=== PATIENT | female | born 1960 | race Caucasian/White ===

== ENCOUNTER 2017-11-10 22:56 | Emergency (ER) | payer SELFPAY ==
[~2017-11-10] VITALS: Ht 160 cm; Wt 63.0 kg
[2017-11-10 23:00] VITALS: BP 171/116
== END 2017-11-11 00:56 | disposition left against medical advice (07) ==
LOC: ER 22:56
DX: R06.02 Shortness of breath (principal); R05 Cough; Z53.21 Procedure and treatment not carried out due to patient leaving prior to being seen by health care provider

== ENCOUNTER 2018-01-25 09:07 | Inpatient (IN) | payer MEDICAID, OTHER ==
[~2018-01-25] VITALS: Ht 160 cm; Wt 59.8 kg
[2018-01-25 09:59] LABS: BASOPHILS % (AUTO) 0.1 % (0-1); EOSINOPHILS # (AUTO) 0.2 X10'3 (0-0.9); EOSINOPHILS % (AUTO) 2.6 % (0-6); HEMATOCRIT 43.9 % (35.0-45.0); HEMOGLOBIN 14.9 g/dl (12.0-16.0); LYMPHOCYTES # (AUTO) 1.3 X10'3 (1.1-4.8); LYMPHOCYTES % (AUTO) 15.1 % (21-51); MEAN CORPUSCULAR HEMOGLOBIN 32.9 PG (27.0-31.0); MEAN CORPUSCULAR VOLUME 96.7 FL (78-98); MEAN PLATELET VOLUME 9.2 FL (7.4-10.4); MONOCYTES # (AUTO) 0.4 X10'3 (0-0.9); MONOCYTES % (AUTO) 4.4 % (2-12); NEUTROPHILS # (AUTO) 6.5 X10'3 (1.8-7.7); NEUTROPHILS % (AUTO) 77.8 % (42-75); PLATELET COUNT 243 X10'3 (140-440); RED BLOOD COUNT 4.54 X10'6 (4.20-5.60); RED CELL DISTRIBUTION WIDTH 15.5 % (11.5-14.5); WHITE BLOOD COUNT 8.4 X10'3 (4.5-11.0)
[2018-01-25 10:14] LABS: ALANINE AMINOTRANSFERASE 49 U/L (12-78); ALBUMIN/GLOBULIN RATIO 0.9 (1.1-1.5); ALKALINE PHOSPHATASE 90 IU/L (46-116); ANION GAP 8 (8-16); ASPARTATE AMINO TRANSFERASE 25 U/L (10-37); BILIRUBIN,TOTAL 0.3 MG/DL (0.1-1.0); BLOOD UREA NITROGEN 18 MG/DL (7-18); BUN/CREATININE RATIO 18.6 (6.6-38.0); CALCIUM 8.8 MG/DL (8.5-10.1); CHLORIDE 107 MMOL/L (99-107); CREATININE 0.97 MG/DL (0.40-0.90); GLUCOSE 109 MG/DL (70-104); POTASSIUM 3.6 MMOL/L (3.5-5.1); SODIUM 145 MMOL/L (135-145); TOTAL PROTEIN 6.4 G/DL (6.4-8.2); eGFR 59 ML/MIN
[2018-01-25] MEDS ORDERED: ipratropium/albuterol 3ml nebule NEB ONE (11:00)
[2018-01-25] MEDS ORDERED: normal saline 1000ML IV soln IVB ONE (11:00)
[2018-01-25] MEDS ORDERED: iohexol 350MG/ML 100ml bottle IV ONE (11:34)
[2018-01-25] MEDS ORDERED: famotidine/PF 10 mg/ml inj IV ONE (11:35)
[2018-01-25] MEDS ORDERED: diphenhydrAMINE 50 mg/ml inj IV ONE (11:35)
[2018-01-25] MEDS ORDERED: methylPREDNISolone sod succ 125mg/2ml vial IV ONE (11:35)
[2018-01-25] MEDS ORDERED: aspirin 81mg tab.chew PO ONE (11:40)
[2018-01-25 11:43] LABS: MAGNESIUM 2.1 MG/DL (1.5-2.4)
[2018-01-25 12:35] LABS: PARTIAL THROMBOPLASTIN TIME 24 SECONDS (22-32)
[2018-01-25] MEDS ORDERED: heparin 10,000 units/1 ML INJ IV ONE ×2 (12:35→14:30)
[2018-01-25] MEDS ORDERED: heparin 10,000 units/1 ML INJ IV PRN ×2 (12:35→14:30)
[2018-01-25] MEDS ORDERED: hydrALAZINE 20mg/ml inj. IV ONE (12:50)
[2018-01-25] MEDS ORDERED: nitroGLYCERIN-Tridil 50MG/D5W 250 ML IV PRN (13:27)
[2018-01-25] MEDS ORDERED: furosemide 10 MG/1 ML 10ml inj IV ONE (13:30)
[2018-01-25] MEDS ORDERED: ondansetron/PF 4mg/2ml inj IV PRN (14:30)
[2018-01-25] MEDS ORDERED: magnesium hydroxide 30ml (MOM) UD suspension PO PRN (14:30)
[2018-01-25] MEDS ORDERED: ipratropium/albuterol 3ml nebule NEB PRN (14:30)
[2018-01-25] MEDS ORDERED: potassium Cl 40MEQ/NS 500ml 500 ML IV PRN ×2 (14:30)
[2018-01-25] MEDS ORDERED: lisinopril 10 MG tablet PO ONE (14:30)
[2018-01-25] MEDS ORDERED: mag hydrox/Alum hydrox/simeth 30ml oral suspension PO PRN (14:30)
[2018-01-25] MEDS ORDERED: magnesium 2GM in 50ml NS 50 ML IV PRN (14:30)
[2018-01-25] MEDS ORDERED: morphine 4 MG/ML inj SYRINge IV PRN (14:30)
[2018-01-25] MEDS ORDERED: magnesium 4gm in 100ml NS 100 ML IV PRN (14:30)
[2018-01-25] MEDS ORDERED: magnesium Cl slow-release 64mg tablet PO PRN (14:30)
[2018-01-25] MEDS ORDERED: potassium Cl 20 mEq SR tablet PO PRN (14:30)
[2018-01-25 15:22] LABS: BASOPHILS % (AUTO) 0 % (0-1); EOSINOPHILS % (AUTO) 0 % (0-6); HEMATOCRIT 46.9 % (35.0-45.0); LYMPHOCYTES # (AUTO) 0.4 X10'3 (1.1-4.8); LYMPHOCYTES % (AUTO) 4.3 % (21-51); MEAN CORPUSCULAR HEMOGLOBIN 32.9 PG (27.0-31.0); MEAN CORPUSCULAR HGB CONC 34.1 % (33.0-36.5); MEAN CORPUSCULAR VOLUME 96.5 FL (78-98); MONOCYTES % (AUTO) 0.3 % (2-12); NEUTROPHILS # (AUTO) 8.4 X10'3 (1.8-7.7); NEUTROPHILS % (AUTO) 95.4 % (42-75); PLATELET COUNT 263 X10'3 (140-440); RED BLOOD COUNT 4.86 X10'6 (4.20-5.60); RED CELL DISTRIBUTION WIDTH 15.3 % (11.5-14.5); WHITE BLOOD COUNT 8.8 X10'3 (4.5-11.0)
[2018-01-25 15:33] LABS: PARTIAL THROMBOPLASTIN TIME 24 SECONDS (22-32)
[2018-01-25] MEDS: morphine 4 MG/ML inj SYRINge IV PRN (17:43)
[2018-01-25 19:00] VITALS: BP 157/84
[2018-01-25] MEDS: carVEDilol 3.125mg tablet PO SCH (20:59)
[2018-01-25] MEDS: furosemide 10 MG/1 ML 10ml inj IV SCH (20:59)
[2018-01-25] MEDS: acetaminophen 325mg tablet PO PRN (21:00)
[2018-01-25 22:00] VITALS: BP 126/73
[2018-01-26 00:29] LABS: BASOPHILS % (AUTO) 0.4 % (0-1); EOSINOPHILS % (AUTO) 0 % (0-6); HEMOGLOBIN 15.5 g/dl (12.0-16.0); LYMPHOCYTES # (AUTO) 0.5 X10'3 (1.1-4.8); LYMPHOCYTES % (AUTO) 5.1 % (21-51); MEAN CORPUSCULAR HEMOGLOBIN 32.9 PG (27.0-31.0); MEAN CORPUSCULAR HGB CONC 34.4 % (33.0-36.5); MEAN CORPUSCULAR VOLUME 95.7 FL (78-98); MEAN PLATELET VOLUME 9.3 FL (7.4-10.4); MONOCYTES # (AUTO) 0.1 X10'3 (0-0.9); MONOCYTES % (AUTO) 0.6 % (2-12); NEUTROPHILS # (AUTO) 8.6 X10'3 (1.8-7.7); NEUTROPHILS % (AUTO) 93.9 % (42-75); PLATELET COUNT 269 X10'3 (140-440); RED CELL DISTRIBUTION WIDTH 15.3 % (11.5-14.5); WHITE BLOOD COUNT 9.2 X10'3 (4.5-11.0)
[2018-01-26 00:45] LABS: ALANINE AMINOTRANSFERASE 49 U/L (12-78); ALBUMIN 3.1 G/DL (3.4-5.0); ALBUMIN/GLOBULIN RATIO 0.8 (1.1-1.5); ALKALINE PHOSPHATASE 96 IU/L (46-116); ANION GAP 10 (8-16); ASPARTATE AMINO TRANSFERASE 25 U/L (10-37); BILIRUBIN,TOTAL 0.4 MG/DL (0.1-1.0); BLOOD UREA NITROGEN 19 MG/DL (7-18); BUN/CREATININE RATIO 15.4 (6.6-38.0); CHLORIDE 102 MMOL/L (99-107); CHOLESTEROL 225 MG/DL (0-200); CREATININE 1.23 MG/DL (0.40-0.90); GLUCOSE 184 MG/DL (70-104); LDL CHOLESTEROL 144 MG/DL (50-100); MAGNESIUM 1.9 MG/DL (1.5-2.4); POTASSIUM 3.3 MMOL/L (3.5-5.1); SODIUM 141 MMOL/L (135-145); TOTAL CARBON DIOXIDE 29.1 MMOL/L (24-32); TRIGLYCERIDES 62 MG/DL (20-135); eGFR 45 ML/MIN
[2018-01-26 02:00] VITALS: BP 118/75
[2018-01-26] MEDS: morphine 4 MG/ML inj SYRINge IV PRN (03:42)
[2018-01-26 07:01] VITALS: BP 154/99
[2018-01-26] MEDS ORDERED: lisinopril 10 MG tablet PO SCH (08:00)
[2018-01-26] MEDS: potassium Cl 20 mEq SR tablet PO PRN ×3 (08:07→17:28)
[2018-01-26] MEDS: carVEDilol 3.125mg tablet PO SCH (08:07)
[2018-01-26] MEDS: atorvastatin 20mg tablet PO SCH (08:07)
[2018-01-26] MEDS: furosemide 10 MG/1 ML 10ml inj IV SCH (08:08)
[2018-01-26] MEDS: K and/or MAG REPLACEMENT MC SCH (08:09)
[2018-01-26] MEDS ORDERED: regadenoson 0.4mg/5ml syringe IV ONE (09:00)
[2018-01-26] MEDS ORDERED: metoprolol tartrate 1mg/ml inj IV PRN (09:00)
[2018-01-26] MEDS ORDERED: aminophylline 250mg/10ml inj. IV PRN (09:00)
[2018-01-26] MEDS ORDERED: nitroGLYCERIN 0.4mg SUBLingual tab SL PRN (09:00)
[2018-01-26] MEDS: potassium Cl 20 mEq SR tablet PO SCH ×2 (10:15→17:28)
[2018-01-26] MEDS: aspirin 81mg tablet.DR PO SCH (10:16)
[2018-01-26 11:00] VITALS: BP 160/94
[2018-01-26 11:13] LABS: CHOL/HDL RATIO 3.8 (0.00-4.99); HDL CHOLESTEROL 60 MG/DL (35-60)
[2018-01-26 11:22] LABS: C-REACTIVE PROTEIN 0.69 MG/DL (0.0-0.5)
[2018-01-26 11:45] LABS: URINE AMPHETAMINE SCREEN NEGATIVE (Neg); URINE BARBITUATE SCREEN NEGATIVE (Neg); URINE BENZODIAZEPINES SCREEN NEGATIVE (Neg); URINE CANNABINOID SCREEN NEGATIVE (Neg); URINE COCAINE SCREEN NEGATIVE (Neg); URINE METHADONE SCREEN NEGATIVE (Neg); URINE OPIATE SCREEN POSITIVE (Neg); URINE PHENCYCLIDINE SCREEN NEGATIVE (Neg)
[2018-01-26] MEDS ORDERED: NO HOME MEDS (13:24)
[2018-01-26] MEDS ORDERED: nitroGLYCERIN-Tridil 50MG/D5W 250 ML IV PRN (13:27)
[2018-01-26 15:00] VITALS: BP 137/93
[2018-01-26] MEDS ORDERED: HYDROcodone/acetaminophen 10/325mg tab PO PRN (16:55)
[2018-01-26 19:00] VITALS: BP 153/95
[2018-01-26] MEDS: furosemide 40mg/4ml inj IV SCH (19:55)
[2018-01-26] MEDS: carvedilol 6.25mg tablet PO SCH (19:56)
[2018-01-26] MEDS: lisinopril 10 MG tablet PO SCH (19:56)
[2018-01-26] MEDS: heparin, porcine 5000 units/ml vial SQ SCH (19:58)
[2018-01-26 23:00] VITALS: BP 108/73
[2018-01-27] VITALS (16 sets, daily range): BP systolic 131–163; BP diastolic 67–97
[2018-01-27 07:03] LABS: ALANINE AMINOTRANSFERASE 42 U/L (12-78); ALBUMIN 2.9 G/DL (3.4-5.0); ALBUMIN/GLOBULIN RATIO 0.9 (1.1-1.5); ALKALINE PHOSPHATASE 79 IU/L (46-116); ANION GAP 7 (8-16); ASPARTATE AMINO TRANSFERASE 23 U/L (10-37); BILIRUBIN,TOTAL 0.3 MG/DL (0.1-1.0); BLOOD UREA NITROGEN 27 MG/DL (7-18); BUN/CREATININE RATIO 24.5 (6.6-38.0); CALCIUM 8.9 MG/DL (8.5-10.1); CHLORIDE 107 MMOL/L (99-107); GLUCOSE 91 MG/DL (70-104); POTASSIUM 4.3 MMOL/L (3.5-5.1); SODIUM 145 MMOL/L (135-145); TOTAL CARBON DIOXIDE 31.3 MMOL/L (24-32); TOTAL PROTEIN 6.1 G/DL (6.4-8.2); eGFR 51 ML/MIN
[2018-01-27] MEDS: K and/or MAG REPLACEMENT MC SCH (08:00)
[2018-01-27] MEDS: lisinopril 10 MG tablet PO SCH ×2 (08:00→20:44)
[2018-01-27] MEDS: furosemide 40mg/4ml inj IV SCH (08:00)
[2018-01-27] MEDS: carvedilol 6.25mg tablet PO SCH ×2 (08:00→20:41)
[2018-01-27] MEDS: potassium Cl 20 mEq SR tablet PO SCH (08:17)
[2018-01-27] MEDS: atorvastatin 20mg tablet PO SCH (08:17)
[2018-01-27] MEDS: aspirin 81mg tablet.DR PO SCH (08:17)
[2018-01-27] MEDS: heparin, porcine 5000 units/ml vial SQ SCH ×2 (08:18→20:45)
[2018-01-27] MEDS ORDERED: aminophylline inj. 10 ML IV ONE (09:27)
[2018-01-27] MEDS ORDERED: regadenoson 0.4mg/5ml syringe IV ONE (09:27)
[2018-01-27] MEDS: spironolactone 25 MG tablet PO SCH (15:11)
[2018-01-27] MEDS: furosemide 20 MG/2 ML vial IV SCH (20:40)
[2018-01-27] MEDS: thiamine 100mg tablet PO SCH (20:43)
[2018-01-28 03:00] VITALS: BP 162/110
[2018-01-28 05:33] LABS: ALANINE AMINOTRANSFERASE 44 U/L (12-78); ALBUMIN/GLOBULIN RATIO 0.8 (1.1-1.5); ALKALINE PHOSPHATASE 88 IU/L (46-116); ANION GAP 6 (8-16); ASPARTATE AMINO TRANSFERASE 25 U/L (10-37); BILIRUBIN,TOTAL 0.3 MG/DL (0.1-1.0); BLOOD UREA NITROGEN 25 MG/DL (7-18); BUN/CREATININE RATIO 24.5 (6.6-38.0); CALCIUM 9.4 MG/DL (8.5-10.1); CHLORIDE 101 MMOL/L (99-107); CREATININE 1.02 MG/DL (0.40-0.90); GLUCOSE 104 MG/DL (70-104); MAGNESIUM 2.1 MG/DL (1.5-2.4); POTASSIUM 4.1 MMOL/L (3.5-5.1); SODIUM 140 MMOL/L (135-145); TOTAL CARBON DIOXIDE 32.6 MMOL/L (24-32); TOTAL PROTEIN 6.6 G/DL (6.4-8.2); eGFR 56 ML/MIN
[2018-01-28 06:30] VITALS: BP 128/80
[2018-01-28 07:27] LABS: BASOPHILS # (AUTO) 0.1 X10'3 (0-0.2); BASOPHILS % (AUTO) 0.9 % (0-1); EOSINOPHILS # (AUTO) 0.4 X10'3 (0-0.9); EOSINOPHILS % (AUTO) 5.1 % (0-6); HEMOGLOBIN 15.8 g/dl (12.0-16.0); LYMPHOCYTES # (AUTO) 1.9 X10'3 (1.1-4.8); LYMPHOCYTES % (AUTO) 24.8 % (21-51); MEAN CORPUSCULAR HEMOGLOBIN 32.9 PG (27.0-31.0); MEAN CORPUSCULAR HGB CONC 33.6 % (33.0-36.5); MEAN CORPUSCULAR VOLUME 97.9 FL (78-98); MEAN PLATELET VOLUME 9.8 FL (7.4-10.4); MONOCYTES # (AUTO) 0.5 X10'3 (0-0.9); MONOCYTES % (AUTO) 6.8 % (2-12); NEUTROPHILS # (AUTO) 4.8 X10'3 (1.8-7.7); NEUTROPHILS % (AUTO) 62.4 % (42-75); PLATELET COUNT 252 X10'3 (140-440); RED BLOOD COUNT 4.81 X10'6 (4.20-5.60); RED CELL DISTRIBUTION WIDTH 15.3 % (11.5-14.5); WHITE BLOOD COUNT 7.6 X10'3 (4.5-11.0)
[2018-01-28] MEDS ORDERED: folic acid 1mg tablet PO SCH (08:00)
[2018-01-28] MEDS: K and/or MAG REPLACEMENT MC SCH (08:00)
[2018-01-28] MEDS: thiamine 100mg tablet PO SCH (08:07)
[2018-01-28] MEDS: spironolactone 25 MG tablet PO SCH (08:07)
[2018-01-28] MEDS: carvedilol 6.25mg tablet PO SCH (08:07)
[2018-01-28] MEDS: atorvastatin 20mg tablet PO SCH (08:07)
[2018-01-28] MEDS: lisinopril 10 MG tablet PO SCH (08:07)
[2018-01-28] MEDS: aspirin 81mg tablet.DR PO SCH (08:07)
[2018-01-28] MEDS: furosemide 20 MG/2 ML vial IV SCH (08:08)
[2018-01-28] MEDS: heparin, porcine 5000 units/ml vial SQ SCH (08:08)
[2018-01-28] MEDS ORDERED: SPIR25TA3 PO (10:57)
[2018-01-28] MEDS ORDERED: THI100T PO (10:57)
[2018-01-28] MEDS ORDERED: LISI10TA4 PO (10:57)
[2018-01-28] MEDS ORDERED: CARV6.253 PO (10:57)
[2018-01-28] MEDS ORDERED: FOLI1TAB16 PO (10:57)
[2018-01-28] MEDS ORDERED: FURO-150 PO (10:57)
[2018-01-28] MEDS ORDERED: ASPI-1071 PO (10:57)
[2018-01-28] MEDS ORDERED: ATOR20TA66 PO (10:57)
[2018-01-28 11:00] VITALS: BP 140/84
[2018-01-28] MEDS: acetaminophen 325mg tablet PO PRN (11:03)
== END 2018-01-28 14:45 | disposition home or self-care (01) | DRG 133 ==
LOC: ER 09:07 → ED HOLD 14:27 → EDBEDREQ 18:55 → PCU 3S 19:20
PROVIDERS: ADMIT Legal Medicine; ATTEND Internal Medicine
PROC: B3201ZZ Computerized Tomography (CT Scan) of Thoracic Aorta using Low Osmolar Contrast (ICD-10-PCS; 2018-01-25)
PROC: 4A02XM4 Measurement of Cardiac Total Activity, External Approach (ICD-10-PCS; principal; 2018-01-27)
PROC: 3E073KZ Introduction of Other Diagnostic Substance into Coronary Artery, Percutaneous Approach (ICD-10-PCS; 2018-01-27)
DX: J96.01 Acute respiratory failure with hypoxia (principal); I50.23 Acute on chronic systolic (congestive) heart failure; I31.3 Pericardial effusion (noninflammatory); I42.8 Other cardiomyopathies; I45.81 Long QT syndrome; E87.6 Hypokalemia; I16.0 Hypertensive urgency; E78.5 Hyperlipidemia, unspecified; R74.8 Abnormal levels of other serum enzymes; F10.20 Alcohol dependence, uncomplicated; G44.40 Drug-induced headache, not elsewhere classified, not intractable; I11.0 Hypertensive heart disease with heart failure; T46.3X5A Adverse effect of coronary vasodilators, initial encounter; Z90.710 Acquired absence of both cervix and uterus; Z91.041 Radiographic dye allergy status; Z91.013 Allergy to seafood; Z87.891 Personal history of nicotine dependence
CPT/HCPCS: 36415; 71045; 71046; 71275; 78451; 80053; 80061; 80305; 83605; 83735; 83880; 84439; 84443; 84484; 85025; 85610; 85651; 85730; 86140; 87040; 87070; 93005; 93017; 93306; 94640; 94760; 96361; 96365; 96375; 96376; 99291; A4310; A4344; A6449; A9500; C1758; J0280; J0360; J1200; J1644; J1940; J2270; J2405; J2930; J3490; J7030; Q9967

== ENCOUNTER 2018-11-12 14:11 | Inpatient (IN) | payer MEDICAID, OTHER ==
[~2018-11-12] VITALS: Ht 160 cm; Wt 61.0 kg
[~2018-11-12 14:11] MED LIST: ASPI-1071 PO; ATOR20TA66 PO; CARV6.253 PO; FOLI1TAB16 PO; LISI10TA4 PO; SPIR25TA5 PO; THI100T PO
[2018-11-12 14:37] LABS: BASOPHILS % (AUTO) 0.7 % (0-1); EOSINOPHILS % (AUTO) 0.5 % (0-6); HEMATOCRIT 47.6 % (35.0-45.0); HEMOGLOBIN 16.2 g/dl (12.0-16.0); LYMPHOCYTES # (AUTO) 1.2 X10'3 (1.1-4.8); LYMPHOCYTES % (AUTO) 22.3 % (21-51); MEAN CORPUSCULAR HEMOGLOBIN 33.4 PG (27.0-31.0); MEAN CORPUSCULAR VOLUME 98.2 FL (78-98); MEAN PLATELET VOLUME 8.3 FL (7.4-10.4); MONOCYTES # (AUTO) 0.5 X10'3 (0-0.9); MONOCYTES % (AUTO) 9.6 % (2-12); NEUTROPHILS # (AUTO) 3.6 X10'3 (1.8-7.7); NEUTROPHILS % (AUTO) 66.9 % (42-75); PLATELET COUNT 231 X10'3 (140-440); RED BLOOD COUNT 4.85 X10'6 (4.20-5.60); RED CELL DISTRIBUTION WIDTH 12.9 % (11.5-14.5); WHITE BLOOD COUNT 5.4 X10'3 (4.5-11.0)
[2018-11-12 14:52] LABS: ALANINE AMINOTRANSFERASE 37 U/L (12-78); ALBUMIN 3.5 G/DL (3.4-5.0); ALBUMIN/GLOBULIN RATIO 0.9 (1.1-1.5); ALKALINE PHOSPHATASE 99 IU/L (46-116); ANION GAP 15 (8-16); ASPARTATE AMINO TRANSFERASE 37 U/L (10-37); BILIRUBIN,TOTAL 0.3 MG/DL (0.1-1.0); BLOOD UREA NITROGEN 20 MG/DL (7-18); BUN/CREATININE RATIO 19.6 (6.6-38.0); CALCIUM 8.5 MG/DL (8.5-10.1); CHLORIDE 98 MMOL/L (99-107); CREATININE 1.02 MG/DL (0.40-0.90); GLUCOSE 98 MG/DL (70-104); PARTIAL THROMBOPLASTIN TIME 30 SECONDS (22-32); POTASSIUM 3.6 MMOL/L (3.5-5.1); PROTHROMBIN TIME 9.8 SECONDS (9.0-12.0); SODIUM 135 MMOL/L (135-145); TOTAL CARBON DIOXIDE 22.4 MMOL/L (24-32); TOTAL PROTEIN 7.6 G/DL (6.4-8.2); eGFR 56 ML/MIN
[2018-11-12] MEDS ORDERED: ipratropium/albuterol 3ml nebule NEB ONE (15:10)
[2018-11-12] MEDS ORDERED: methylPREDNISolone sod succ 125mg/2ml vial IV ONE (15:10)
[2018-11-12] MEDS ORDERED: normal saline 1000ML IV soln IVB ONE (15:10)
[2018-11-12 15:47] LABS: D-DIMER 0.85 MG/L FEU (0-0.50)
[2018-11-12 16:19] LABS: ETHANOL < 0.010 GM/DL (0.0-0.010)
--- NOTE | 2018-11-12 17:05 | NUR ---
[facility] called regarding scan for patient, Stated that pharmacy is closed and unable to perform scan tonight and if patient is admitted she will be able to perform it tomorrow. Pee GEORGE aware.
[2018-11-12 17:31] LABS: ABG BASE EXCESS -5.1 mmol/L (-2.0-3.0); ABG OXYGEN SATURATION 90.1 % (95-98); ABG PH (T) 7.377 (7.350-7.450); ABG PO2 (T) 58.5 mmHg (83-108); ALLEN'S TEST Positive; FCOHb 1.1 % (0.5-1.5); FMetHb 0.1 % (0.3-1.12); RESPIRATORY RATE (OBSERVED) 20 b/min; TOTAL HEMOGLOBIN 15.6 G/dl (12.0-16.0)
[2018-11-12] MEDS ORDERED: heparin 25,000 UNIT/250ml bag 250 ML IV SCH ×2 (17:34→18:09)
[2018-11-12] MEDS ORDERED: heparin 10,000 units/1 ML INJ IV ONE (17:35)
[2018-11-12] MEDS ORDERED: mag hydrox/Alum hydrox/simeth 30ml oral suspension PO PRN (18:10)
[2018-11-12] MEDS ORDERED: magnesium 2GM in 50ml NS 50 ML IV PRN (18:10)
[2018-11-12] MEDS ORDERED: HYDROcodone/acetaminophen 5mg/325mg tablet PO PRN (18:10)
[2018-11-12] MEDS ORDERED: magnesium 4gm in 100ml NS 100 ML IV PRN (18:10)
[2018-11-12] MEDS ORDERED: potassium Cl 20 mEq SR tablet PO PRN (18:10)
[2018-11-12] MEDS ORDERED: furosemide 40mg/4ml inj IV ONE (18:10)
[2018-11-12] MEDS ORDERED: acetaminophen 325mg tablet PO PRN (18:10)
[2018-11-12] MEDS ORDERED: HYDROcodone/acetaminophen 10/325mg tab PO PRN (18:10)
[2018-11-12] MEDS ORDERED: potassium Cl 40MEQ/NS 500ml 500 ML IV PRN ×2 (18:10)
[2018-11-12] MEDS ORDERED: ondansetron/PF 4mg/2ml inj IV PRN (18:10)
[2018-11-12] MEDS ORDERED: magnesium Cl slow-release 64mg tablet PO PRN (18:10)
[2018-11-12] MEDS ORDERED: heparin 10,000 units/1 ML INJ IV PRN (18:10)
[2018-11-12] MEDS ORDERED: magnesium hydroxide 30ml (MOM) UD suspension PO PRN (18:10)
[2018-11-12 18:24] LABS: URINE AMPHETAMINE SCREEN POSITIVE (Neg); URINE BARBITUATE SCREEN NEGATIVE (Neg); URINE BENZODIAZEPINES SCREEN NEGATIVE (Neg); URINE CANNABINOID SCREEN NEGATIVE (Neg); URINE COCAINE SCREEN NEGATIVE (Neg); URINE METHADONE SCREEN NEGATIVE (Neg); URINE OPIATE SCREEN NEGATIVE (Neg); URINE PHENCYCLIDINE SCREEN NEGATIVE (Neg)
[2018-11-12 18:43] LABS: CHOL/HDL RATIO 3.3 (0.00-4.99); CHOLESTEROL 182 MG/DL (0-200); HDL CHOLESTEROL 55 MG/DL (35-60); LDL CHOLESTEROL 110 MG/DL (50-100); TRIGLYCERIDES 83 MG/DL (20-135)
[2018-11-12] MEDS: carvedilol 6.25mg tablet PO SCH (20:05)
--- NOTE | 2018-11-12 20:08 | NUR ---
Surry given to patient
--- NOTE | 2018-11-12 20:12 | NUR ---
Retimed PTT to 2350 (6 hrs post heparin initiation)
--- NOTE | 2018-11-12 20:48 | NUR ---
Patient in room ED 5. I have received report from payal peñaloza and had the opportunity to ask questions and assume patient care.
--- NOTE | 2018-11-12 21:00 | NUR ---
patient arrived to floor via gurney and ambulated to bed; patient oriented to nurse, room, call light system and events for the shift. 2 rn skin check done with alisia lopez rn; no skin issues observed this shift. patient in no distress at this time. heparin running at 1100 and iv site free of problems. v/s and assessment completed. dr leon called about patient's persistent dry coughing episodes. dr leon ordered robitussin with codeine prn cough. will continue to monitor Addendum: 11/13/18 at 0403 by Yao Bobo RN PATIENT AT THIS TIME DURING SHIFT IS TOO TIRED TO DO DART; WILL INFORM DAY SHIFT
[2018-11-12 21:33] VITALS: BP 138/84
[2018-11-12] MEDS: guaiFENesin/codeine phos 10ml UD oral syrup PO PRN (22:43)
[2018-11-12] MEDS: acetaminophen 325mg tablet PO PRN (22:45)
--- NOTE | 2018-11-13 01:30 | NUR ---
DR SWANSON CALLED ABOUT PATIENT'S PTT COMING BACK NO NUMERICAL VALUE; LAB CALLED NURSE AFTER 2ND REDRAW AND COULD NOT DETERMINE IF PTT WAS ELEVATED OR LOW. DR SWANSON CALLED ABOUT LAB ISSUE AND ORDERED NURSE TO STOP HEPARIN GTT AND TO START PATIENT ON LOVENOX 60MG TO START NOW Q12H. WILL CONTINUE TO MONITOR PATIENT V/S REMAIN STABLE
[2018-11-13] MEDS: enoxaparin 60mg/0.6ml syringe SUBCUT SCH ×2 (02:03→07:47)
[2018-11-13 03:00] VITALS: BP 137/78
[2018-11-13 03:03] LABS: CHOL/HDL RATIO 3.2 (0.00-4.99); CHOLESTEROL 196 MG/DL (0-200); HDL CHOLESTEROL 62 MG/DL (35-60); LDL CHOLESTEROL 124 MG/DL (50-100); MAGNESIUM 2.2 MG/DL (1.5-2.4); PHOSPHORUS 3.5 MG/DL (2.3-4.5); TRIGLYCERIDES 58 MG/DL (20-135)
[2018-11-13 03:32] LABS: BASOPHILS % (AUTO) 0.1 % (0-1); EOSINOPHILS % (AUTO) 0.1 % (0-6); HEMATOCRIT 45.3 % (35.0-45.0); LYMPHOCYTES # (AUTO) 0.7 X10'3 (1.1-4.8); LYMPHOCYTES % (AUTO) 19.6 % (21-51); MEAN CORPUSCULAR HEMOGLOBIN 33.1 PG (27.0-31.0); MEAN CORPUSCULAR HGB CONC 33.1 % (33.0-36.5); MEAN CORPUSCULAR VOLUME 100.1 FL (78-98); MEAN PLATELET VOLUME 9.3 FL (7.4-10.4); MONOCYTES # (AUTO) 0.2 X10'3 (0-0.9); MONOCYTES % (AUTO) 5.1 % (2-12); NEUTROPHILS # (AUTO) 2.5 X10'3 (1.8-7.7); NEUTROPHILS % (AUTO) 75.1 % (42-75); PLATELET COUNT 217 X10'3 (140-440); RED BLOOD COUNT 4.52 X10'6 (4.20-5.60); RED CELL DISTRIBUTION WIDTH 12.3 % (11.5-14.5); WHITE BLOOD COUNT 3.4 X10'3 (4.5-11.0)
[2018-11-13 06:00] VITALS: BP 138/86
--- NOTE | 2018-11-13 06:27 | NUR ---
[facility] Medication Administration: For this medication-pass time frame, all medication were reviewed, dispensed, administered and documented per hospital policy by alisia peñaloza.
--- NOTE | 2018-11-13 06:27 | NUR ---
[place] documentation: I have reviewed and agree with all interventions, assessments performed and documented by alisia peñaloza.
[2018-11-13] MEDS: guaiFENesin/codeine phos 10ml UD oral syrup PO PRN ×4 (06:35→23:07)
--- NOTE | 2018-11-13 06:37 | NUR ---
Problems reprioritized. Patient report given, questions answered & plan of care reviewed with lluvia peñaloza. patient awake in no distress; just coughing. robitussin effecitve.
--- NOTE | 2018-11-13 06:44 | NUR ---
Patient in room PCU 3028. I have received report from Cinda FONTANEZ and had the opportunity to ask questions and assume patient care. Will continue to monitor.
[2018-11-13] MEDS: spironolactone 25 MG tablet PO SCH (07:44)
[2018-11-13] MEDS: aspirin 81mg tablet.DR PO SCH (07:44)
[2018-11-13] MEDS: carvedilol 6.25mg tablet PO SCH ×2 (07:45→20:17)
[2018-11-13] MEDS: lisinopril 10 MG tablet PO SCH (07:45)
[2018-11-13] MEDS: atorvastatin 20mg tablet PO SCH (07:45)
[2018-11-13] MEDS: furosemide 40mg/4ml inj IV SCH ×2 (07:46→20:17)
[2018-11-13] MEDS: K and/or MAG REPLACEMENT MC SCH (08:00)
[2018-11-13] MEDS ORDERED: ondansetron/PF 4mg/2ml inj ONE (09:15)
[2018-11-13 09:17] LABS: ALANINE AMINOTRANSFERASE 36 U/L (12-78); ALBUMIN 3.2 G/DL (3.4-5.0); ALBUMIN/GLOBULIN RATIO 0.8 (1.1-1.5); ALKALINE PHOSPHATASE 88 IU/L (46-116); ANION GAP 12 (8-16); ASPARTATE AMINO TRANSFERASE 26 U/L (10-37); BILIRUBIN,TOTAL 0.2 MG/DL (0.1-1.0); BLOOD UREA NITROGEN 29 MG/DL (7-18); BUN/CREATININE RATIO 33.7 (6.6-38.0); CALCIUM 8.8 MG/DL (8.5-10.1); CHLORIDE 101 MMOL/L (99-107); CREATININE 0.86 MG/DL (0.40-0.90); GLUCOSE 166 MG/DL (70-104); POTASSIUM 3.3 MMOL/L (3.5-5.1); SODIUM 138 MMOL/L (135-145); TOTAL CARBON DIOXIDE 24.9 MMOL/L (24-32); TOTAL PROTEIN 7.4 G/DL (6.4-8.2); eGFR 68 ML/MIN
[2018-11-13] MEDS: potassium Cl 20 mEq SR tablet PO PRN ×3 (10:19→20:17)
[2018-11-13 11:00] VITALS: BP 120/58
[2018-11-13] MEDS ORDERED: ipratropium/albuterol 3ml nebule NEB PRN (11:20)
[2018-11-13] MEDS: CefTRIAXone/D5W-Rocephin 1gm 50 ML IV SCH (12:28)
[2018-11-13 15:00] VITALS: BP 131/98
[2018-11-13] MEDS: methylPREDNISolone sod succ 125mg/2ml vial IV SCH ×2 (15:26→20:17)
--- NOTE | 2018-11-13 18:30 | NUR ---
Problems reprioritized. Patient report given, questions answered & plan of care reviewed with Ashu FONTANEZ.
--- NOTE | 2018-11-13 18:43 | NUR ---
Patient in room PCU 3028B. I have received report from Amina FONTANEZ and had the opportunity to ask questions and assume patient care.
[2018-11-13 19:00] VITALS: BP 119/77
[2018-11-13] MEDS: ipratropium/albuterol 3ml nebule NEB SCH ×3 (19:13→22:57)
[2018-11-13 23:00] VITALS: BP 124/74
[2018-11-13] MEDS: temazepam 15mg capsule PO PRN (23:07)
[2018-11-14 03:00] VITALS: BP 133/71
[2018-11-14] MEDS: methylPREDNISolone sod succ 125mg/2ml vial IV SCH ×2 (03:00→07:58)
[2018-11-14] MEDS: guaiFENesin/codeine phos 10ml UD oral syrup PO PRN ×3 (03:05→19:23)
[2018-11-14 05:21] LABS: BASOPHILS % (AUTO) 0.1 % (0-1); EOSINOPHILS % (AUTO) 0 % (0-6); HEMATOCRIT 44.8 % (35.0-45.0); HEMOGLOBIN 14.9 g/dl (12.0-16.0); LYMPHOCYTES # (AUTO) 0.5 X10'3 (1.1-4.8); LYMPHOCYTES % (AUTO) 5.1 % (21-51); MEAN CORPUSCULAR HEMOGLOBIN 33.3 PG (27.0-31.0); MEAN CORPUSCULAR HGB CONC 33.2 % (33.0-36.5); MEAN CORPUSCULAR VOLUME 100.4 FL (78-98); MEAN PLATELET VOLUME 9.4 FL (7.4-10.4); MONOCYTES # (AUTO) 0.3 X10'3 (0-0.9); NEUTROPHILS # (AUTO) 9.1 X10'3 (1.8-7.7); NEUTROPHILS % (AUTO) 91.8 % (42-75); PLATELET COUNT 247 X10'3 (140-440); RED BLOOD COUNT 4.47 X10'6 (4.20-5.60); RED CELL DISTRIBUTION WIDTH 12.3 % (11.5-14.5); WHITE BLOOD COUNT 9.9 X10'3 (4.5-11.0)
[2018-11-14 05:53] LABS: ALANINE AMINOTRANSFERASE 34 U/L (12-78); ALBUMIN 3.2 G/DL (3.4-5.0); ALBUMIN/GLOBULIN RATIO 0.8 (1.1-1.5); ALKALINE PHOSPHATASE 82 IU/L (46-116); ANION GAP 10 (8-16); ASPARTATE AMINO TRANSFERASE 26 U/L (10-37); BILIRUBIN,TOTAL 0.2 MG/DL (0.1-1.0); BLOOD UREA NITROGEN 40 MG/DL (7-18); BUN/CREATININE RATIO 31.3 (6.6-38.0); CALCIUM 8.7 MG/DL (8.5-10.1); CHLORIDE 103 MMOL/L (99-107); CREATININE 1.28 MG/DL (0.40-0.90); GLUCOSE 172 MG/DL (70-104); MAGNESIUM 2.1 MG/DL (1.5-2.4); PHOSPHORUS 3.6 MG/DL (2.3-4.5); POTASSIUM 4.7 MMOL/L (3.5-5.1); SODIUM 138 MMOL/L (135-145); TOTAL CARBON DIOXIDE 25.2 MMOL/L (24-32); TOTAL PROTEIN 7.1 G/DL (6.4-8.2); eGFR 43 ML/MIN
[2018-11-14 06:00] VITALS: BP 114/69
--- NOTE | 2018-11-14 06:09 | NUR ---
Problems reprioritized. Patient report given, questions answered & plan of care reviewed with Amina FONTANEZ.
--- NOTE | 2018-11-14 06:26 | NUR ---
Patient in room PCU 3028. I have received report from Ashu FONTANEZ and had the opportunity to ask questions and assume patient care. Pt is on 2 L nasal canula, is alert and oriented X 4 and without signs of distress. Will continue to monitor.
[2018-11-14] MEDS: ipratropium/albuterol 3ml nebule NEB SCH ×5 (07:29→23:00)
[2018-11-14] MEDS: CefTRIAXone/D5W-Rocephin 1gm 50 ML IV SCH (07:58)
[2018-11-14] MEDS: lisinopril 10 MG tablet PO SCH (08:00)
[2018-11-14] MEDS: atorvastatin 20mg tablet PO SCH (08:00)
[2018-11-14] MEDS: furosemide 40mg/4ml inj IV SCH (08:00)
[2018-11-14] MEDS: spironolactone 25 MG tablet PO SCH (08:00)
[2018-11-14] MEDS: aspirin 81mg tablet.DR PO SCH (08:00)
[2018-11-14] MEDS: carvedilol 6.25mg tablet PO SCH ×2 (08:00→19:24)
[2018-11-14] MEDS: K and/or MAG REPLACEMENT MC SCH (08:00)
[2018-11-14] MEDS ORDERED: FLU VACC QUAD 2018(5 YR UP)/PF 60 MCG/0.5 ML SYRINGE IM ONE (10:00)
[2018-11-14] MEDS ORDERED: pneumococcal 23-VAL P-sac vacc 25 mcg/0.5ml vial IMVAC ONE (10:00)
[2018-11-14 11:00] VITALS: BP 117/71
[2018-11-14 15:00] VITALS: BP 120/72
[2018-11-14 18:00] VITALS: BP 128/75
--- NOTE | 2018-11-14 18:51 | NUR ---
Problems reprioritized. Patient report given, questions answered & plan of care reviewed with Chantell FONTANEZ.
--- NOTE | 2018-11-14 18:52 | NUR ---
Patient in room PCU 3028. I have received report from Amina FONTANEZ and had the opportunity to ask questions and assume patient care.
[2018-11-14] MEDS: acetaminophen 325mg tablet PO PRN (19:24)
[2018-11-14 22:00] VITALS: BP 128/86
[2018-11-14] MEDS: temazepam 15mg capsule PO PRN (23:02)
[2018-11-15 02:00] VITALS: BP 116/74
[2018-11-15 05:09] LABS: BASOPHILS % (AUTO) 0.1 % (0-1); EOSINOPHILS % (AUTO) 0 % (0-6); HEMATOCRIT 43.2 % (35.0-45.0); HEMOGLOBIN 14.1 g/dl (12.0-16.0); LYMPHOCYTES # (AUTO) 0.9 X10'3 (1.1-4.8); LYMPHOCYTES % (AUTO) 7.9 % (21-51); MEAN CORPUSCULAR HEMOGLOBIN 32.6 PG (27.0-31.0); MEAN CORPUSCULAR HGB CONC 32.7 % (33.0-36.5); MEAN CORPUSCULAR VOLUME 99.7 FL (78-98); MEAN PLATELET VOLUME 9.2 FL (7.4-10.4); MONOCYTES # (AUTO) 0.9 X10'3 (0-0.9); MONOCYTES % (AUTO) 7.7 % (2-12); NEUTROPHILS # (AUTO) 9.3 X10'3 (1.8-7.7); NEUTROPHILS % (AUTO) 84.3 % (42-75); PLATELET COUNT 239 X10'3 (140-440); RED BLOOD COUNT 4.34 X10'6 (4.20-5.60); WHITE BLOOD COUNT 11.1 X10'3 (4.5-11.0)
[2018-11-15 05:22] LABS: ALANINE AMINOTRANSFERASE 31 U/L (12-78); ALBUMIN/GLOBULIN RATIO 0.8 (1.1-1.5); ANION GAP 10 (8-16); ASPARTATE AMINO TRANSFERASE 19 U/L (10-37); BILIRUBIN,TOTAL 0.2 MG/DL (0.1-1.0); BLOOD UREA NITROGEN 47 MG/DL (7-18); BUN/CREATININE RATIO 34.3 (6.6-38.0); CALCIUM 8.6 MG/DL (8.5-10.1); CHLORIDE 103 MMOL/L (99-107); CREATININE 1.37 MG/DL (0.40-0.90); GLUCOSE 115 MG/DL (70-104); MAGNESIUM 2.1 MG/DL (1.5-2.4); POTASSIUM 4.1 MMOL/L (3.5-5.1); SODIUM 140 MMOL/L (135-145); TOTAL CARBON DIOXIDE 27.4 MMOL/L (24-32); TOTAL PROTEIN 6.6 G/DL (6.4-8.2); eGFR 40 ML/MIN
[2018-11-15 05:35] LABS: ALKALINE PHOSPHATASE 76 IU/L (46-116)
--- NOTE | 2018-11-15 06:12 | NUR ---
Problems reprioritized. Patient report given, questions answered & plan of care reviewed with Amina FONTANEZ.
--- NOTE | 2018-11-15 06:37 | NUR ---
Patient in room PCU 3028. I have received report from Chantell FONTANEZ and had the opportunity to ask questions and assume patient care. Pt is on room air (continuous pulse ox being monitored) and without signs of distress. Pt is alert and oriented X 4. Will continue to monitor.
[2018-11-15] MEDS: ipratropium/albuterol 3ml nebule NEB SCH ×2 (07:25→12:25)
[2018-11-15 07:31] VITALS: BP_SYST 132
[2018-11-15] MEDS: atorvastatin 20mg tablet PO SCH (07:31)
[2018-11-15] MEDS: carvedilol 6.25mg tablet PO SCH (07:31)
[2018-11-15] MEDS: CefTRIAXone/D5W-Rocephin 1gm 50 ML IV SCH (07:31)
[2018-11-15] MEDS: aspirin 81mg tablet.DR PO SCH (07:31)
[2018-11-15] MEDS: lisinopril 10 MG tablet PO SCH (07:31)
[2018-11-15] MEDS: K and/or MAG REPLACEMENT MC SCH (08:00)
[2018-11-15] MEDS ORDERED: LISI40TA4 PO (13:46)
[2018-11-15] MEDS ORDERED: PRED20TA PO (13:46)
--- NOTE | 2018-11-15 16:25 | NUR ---
IV discontinued with canula intact.Tele monitor discontinued. New prescription called into [facility] in [place] [address]. Discharge instructions given to pt and to patient's spouse. Pt left in private vehicle driven by spouse with all of her belongings.
[2018-11-15] MEDS ORDERED: predniSONE 20 mg tablet PO SCH (18:00)
== END 2018-11-15 16:30 | disposition home or self-care (01) | DRG 189 ==
LOC: ER 14:12 → ED HOLD 18:09 → PCU 3S 20:45
PROVIDERS: ADMIT Family Medicine; ATTEND Family Medicine
PROC: CB121ZZ Planar Nuclear Medicine Imaging of Lungs and Bronchi using Technetium 99m (Tc-99m) (ICD-10-PCS; principal; 2018-11-13)
DX: J96.01 Acute respiratory failure with hypoxia (principal); I13.0 Hypertensive heart and chronic kidney disease with heart failure and stage 1 through stage 4 chronic kidney disease, or unspecified chronic kidney disease; I50.20 Unspecified systolic (congestive) heart failure; J44.1 Chronic obstructive pulmonary disease with (acute) exacerbation; E78.5 Hyperlipidemia, unspecified; E87.6 Hypokalemia; I25.5 Ischemic cardiomyopathy; R00.0 Tachycardia, unspecified; N18.9 Chronic kidney disease, unspecified; R79.1 Abnormal coagulation profile; Z87.891 Personal history of nicotine dependence; Z90.710 Acquired absence of both cervix and uterus; Z91.041 Radiographic dye allergy status; Z91.013 Allergy to seafood; Z79.899 Other long term (current) drug therapy
CPT/HCPCS: 36415; 36600; 71045; 78582; 80053; 80061; 80305; 80320; 82803; 83735; 83880; 84100; 84484; 85018; 85025; 85379; 85610; 85730; 87070; 93005; 93306; 93970; 94640; 94760; 96361; 96365; 96375; 99285; A9539; A9540; G0378; J0696; J1644; J1650; J1940; J2405; J2930; Q2037

== ENCOUNTER 2020-12-14 10:12 | Emergency (ER) | payer MEDICAID ==
[~2020-12-14] VITALS: Ht 162.6 cm; Wt 67.3 kg
[~2020-12-14 10:12] MED LIST changes: -ASPI-1071 PO; -CARV6.253 PO; -FOLI1TAB16 PO; -LISI10TA4 PO; +PRED20TA PO; -SPIR25TA5 PO; -THI100T PO
[2020-12-14 11:17] LABS: BASOPHILS # (AUTO) 0.1 X10'3 (0-0.2); BASOPHILS % (AUTO) 1.3 % (0-1); EOSINOPHILS # (AUTO) 0.8 X10'3 (0-0.9); EOSINOPHILS % (AUTO) 9.8 % (0-6); HEMATOCRIT 46.4 % (35.0-45.0); HEMOGLOBIN 15.7 g/dl (12.0-16.0); LYMPHOCYTES # (AUTO) 1.3 X10'3 (1.1-4.8); LYMPHOCYTES % (AUTO) 16.7 % (21-51); MEAN CORPUSCULAR HEMOGLOBIN 32.6 PG (27.0-31.0); MEAN CORPUSCULAR HGB CONC 33.9 g/dL (33.0-36.5); MEAN CORPUSCULAR VOLUME 96.3 FL (78-98); MEAN PLATELET VOLUME 9.7 FL (7.4-10.4); MONOCYTES # (AUTO) 0.5 X10'3 (0-0.9); MONOCYTES % (AUTO) 5.8 % (2-12); NEUTROPHILS # (AUTO) 5.3 X10'3 (1.8-7.7); NEUTROPHILS % (AUTO) 66.4 % (42-75); PLATELET COUNT 251 X10'3 (140-440); RED BLOOD COUNT 4.82 X10'6 (4.20-5.60); RED CELL DISTRIBUTION WIDTH 12.8 % (11.5-14.5)
[2020-12-14 11:33] LABS: ALANINE AMINOTRANSFERASE 31 U/L (12-78); ALBUMIN 3.6 G/DL (3.4-5.0); ALBUMIN/GLOBULIN RATIO 0.9 (1.1-1.5); ALKALINE PHOSPHATASE 100 IU/L (46-116); ANION GAP 8 (8-16); ASPARTATE AMINO TRANSFERASE 23 U/L (10-37); BILIRUBIN,TOTAL 0.5 MG/DL (0.1-1.0); BLOOD UREA NITROGEN 16 MG/DL (7-18); BUN/CREATININE RATIO 20.3 (6.6-38.0); CHLORIDE 105 MMOL/L (99-107); CREATININE 0.79 MG/DL (0.40-0.90); GLUCOSE 110 MG/DL (70-104); SODIUM 141 MMOL/L (135-145); TOTAL CARBON DIOXIDE 28.2 MMOL/L (24-32); TOTAL PROTEIN 7.4 G/DL (6.4-8.2); eGFR 74 ML/MIN
--- NOTE | 2020-12-14 11:36 | NUR ---
DORIS DALLAS NOTIFIED OF BP, ORDERS FOR NITRO GIVEN
[2020-12-14 11:46] LABS: POTASSIUM 4.2 MMOL/L (3.5-5.1)
[2020-12-14] MEDS: nitroGLYCERIN 0.4mg SUBLingual tab SL PRN ×2 (11:51→15:41)
[2020-12-14] MEDS ORDERED: furosemide 10 MG/1 ML 10ml inj IV ONE (12:00)
[2020-12-14] MEDS ORDERED: hydrALAZINE 20mg/ml inj. IV ONE ×2 (12:00→13:30)
[2020-12-14] MEDS ORDERED: LORazepam 2 mg/ml vial IV ONE ×2 (12:00→13:30)
[2020-12-14] MEDS ORDERED: acetaminophen 325mg tablet PO ONE (12:05)
--- NOTE | 2020-12-14 13:27 | NUR ---
Pt peed all over floor, still breathing very fast, PA at bedside
[2020-12-14 13:57] LABS: URINE AMPHETAMINE SCREEN POSITIVE (Neg); URINE BARBITUATE SCREEN NEGATIVE (Neg); URINE BENZODIAZEPINES SCREEN NEGATIVE (Neg); URINE CANNABINOID SCREEN NEGATIVE (Neg); URINE COCAINE SCREEN NEGATIVE (Neg); URINE METHADONE SCREEN NEGATIVE (Neg); URINE OPIATE SCREEN NEGATIVE (Neg); URINE PHENCYCLIDINE SCREEN NEGATIVE (Neg)
[2020-12-14 14:02] LABS: ABG BASE EXCESS 2.1 mmol/L (-2.0-2.0); ABG HCO3 25.8 mmol/L (22.0-26.0); ABG OXYGEN SATURATION 88.5 % (94-97); ABG PCO2 (T) 36.9 mmHg (32.0-45.0); ABG PO2 (T) 48.6 mmHg (75.0-100.0); ALLEN'S TEST Yes; FCOHb 0.9 % (0.0-3.9); FMetHb 0.1 % (0.0-1.5); FO2Hb 87.6 % (94-97); PATIENT TEMPERATURE 36.6; TOTAL HEMOGLOBIN 17.4 G/dl (12.0-16.0)
--- NOTE | 2020-12-14 15:57 | NUR ---
assisted pt to bsc, when returning to bed pt experienced significant left lower leg cramps. DORIS Valdez to be notified. Primary RN Cait informed.
[2020-12-14] MEDS ORDERED: famotidine 20mg tablet PO ONE (16:05)
[2020-12-14 17:40] VITALS: BP 160/95
[2020-12-15] MEDS ORDERED: LISI40TA4 PO (14:56)
[2020-12-15] MEDS ORDERED: CARV12.545 PO (14:56)
== END 2020-12-14 17:42 | disposition home or self-care (01) ==
LOC: ER 10:13
DX: R06.02 Shortness of breath (principal); I50.9 Heart failure, unspecified; R51.9 Headache, unspecified; R07.89 Other chest pain; R05 Cough; R06.2 Wheezing; Z56.0 Unemployment, unspecified; Z88.8 Allergy status to other drugs, medicaments and biological substances; Z91.013 Allergy to seafood; Z79.899 Other long term (current) drug therapy
CPT/HCPCS: 36415; 36600; 71045; 80053; 80305; 82803; 83880; 84484; 85018; 85025; 93005; 96374; 96375; 99285; J0360; J1940; J2060

== ENCOUNTER 2021-01-15 08:14 | Inpatient (IN) | payer MEDICAID ==
[~2021-01-15] VITALS: Ht 160 cm; Wt 63.0 kg
[~2021-01-15 08:14] MED LIST changes: +ALBU8.5H8 IH; +CARV12.545 PO; +IPRA4AER IH; +LISI40TA13 PO
[2021-01-15] MEDS ORDERED: predniSONE 20 mg tablet PO ONE (08:50)
[2021-01-15] MEDS ORDERED: albuterol 2.5 MG/3 ML nebule CONTNEB PRN (08:50)
[2021-01-15] MEDS ORDERED: azithromycin/NS 500mg/250ml 250 ML IV ONE (08:50)
[2021-01-15] MEDS ORDERED: AMLO5TAB16 PO (08:58)
[2021-01-15 09:18] LABS: BASOPHILS # (AUTO) 0.1 X10'3 (0-0.2); BASOPHILS % (AUTO) 0.8 % (0-1); EOSINOPHILS # (AUTO) 0.8 X10'3 (0-0.9); EOSINOPHILS % (AUTO) 8.8 % (0-6); HEMATOCRIT 43.5 % (35.0-45.0); HEMOGLOBIN 14.8 g/dl (12.0-16.0); LYMPHOCYTES # (AUTO) 1.7 X10'3 (1.1-4.8); LYMPHOCYTES % (AUTO) 18.3 % (21-51); MEAN CORPUSCULAR HEMOGLOBIN 32.6 PG (27.0-31.0); MEAN CORPUSCULAR VOLUME 95.8 FL (78-98); MEAN PLATELET VOLUME 8.2 FL (7.4-10.4); MONOCYTES # (AUTO) 0.6 X10'3 (0-0.9); MONOCYTES % (AUTO) 6.2 % (2-12); NEUTROPHILS % (AUTO) 65.9 % (42-75); PLATELET COUNT 293 X10'3 (140-440); RED BLOOD COUNT 4.54 X10'6 (4.20-5.60); RED CELL DISTRIBUTION WIDTH 12.8 % (11.5-14.5); WHITE BLOOD COUNT 9.1 X10'3 (4.5-11.0)
[2021-01-15 09:33] LABS: ALANINE AMINOTRANSFERASE 32 U/L (12-78); ALBUMIN 3.2 G/DL (3.4-5.0); ALBUMIN/GLOBULIN RATIO 0.8 (1.1-1.5); ALKALINE PHOSPHATASE 106 IU/L (46-116); ANION GAP 9 (8-16); ASPARTATE AMINO TRANSFERASE 20 U/L (10-37); BILIRUBIN,TOTAL 0.4 MG/DL (0.1-1.0); BLOOD UREA NITROGEN 15 MG/DL (7-18); BUN/CREATININE RATIO 16.3 (6.6-38.0); CALCIUM 9.3 MG/DL (8.5-10.1); CHLORIDE 107 MMOL/L (99-107); CREATININE 0.92 MG/DL (0.40-0.90); GLUCOSE 109 MG/DL (70-104); POTASSIUM 3.6 MMOL/L (3.5-5.1); SODIUM 143 MMOL/L (135-145); TOTAL CARBON DIOXIDE 27.5 MMOL/L (24-32); TOTAL PROTEIN 7.2 G/DL (6.4-8.2); eGFR 62 ML/MIN
--- NOTE | 2021-01-15 10:42 | NUR ---
PATIENT DID NOT TAKE AM DOSE OF BP/HR MEDS. DR. PARIKH AWARE. ONE TIME DOSE OF COREG AND LISINOPRIL ORDERED PER MD.
[2021-01-15] MEDS ORDERED: lisinopril 20mg tablet PO ONE (10:45)
[2021-01-15] MEDS ORDERED: lisinopril 10 MG tablet PO ONE (10:45)
[2021-01-15] MEDS: carVEDilol 12.5mg tablet PO SCH ×2 (10:47→20:44)
[2021-01-15] MEDS ORDERED: morphine 2 MG/ML inj. syringe IV PRN ×2 (11:15)
[2021-01-15] MEDS ORDERED: HYDROcodone/acetaminophen 10/325mg tab PO PRN (11:15)
[2021-01-15] MEDS ORDERED: potassium Cl 20 mEq SR tablet PO PRN ×2 (11:15)
[2021-01-15] MEDS ORDERED: magnesium Cl slow-release 64mg tablet PO PRN (11:15)
[2021-01-15] MEDS ORDERED: acetaminophen 325mg tablet PO PRN (11:15)
[2021-01-15] MEDS ORDERED: magnesium 2GM in 50ml NS 50 ML IV PRN (11:15)
[2021-01-15] MEDS ORDERED: potassium Cl 40MEQ/1/2NS 520ml 520 ML IV PRN ×2 (11:15)
[2021-01-15] MEDS ORDERED: ondansetron/PF 4mg/2ml inj IV PRN (11:15)
[2021-01-15] MEDS ORDERED: magnesium 4gm in 100ml NS 100 ML IV PRN (11:15)
[2021-01-15] MEDS: albuterol 2.5 MG/3 ML nebule NEB SCH ×4 (11:37→23:09)
[2021-01-15] MEDS: normal saline 1000ml 1,000 ML IV SCH (12:18)
--- NOTE | 2021-01-15 13:10 | NUR ---
Spoke with Dr. No shortly after admission orders were written, MD did not wish for troponins to be ordered, none had previously been done for ED, so order to "continue ED troponin protocol" was d/c'ed. Pt with no chest pain.
[2021-01-15] MEDS: HYDROcodone/acetaminophen 5mg/325mg tablet PO PRN ×2 (14:47→20:57)
[2021-01-15 15:00] VITALS: BP 162/100
[2021-01-15 18:00] VITALS: BP 159/68
--- NOTE | 2021-01-15 18:00 | NUR ---
Patient in room PCU 3016. I have received report from Eneida FONTANEZ and had the opportunity to ask questions and assume patient care.
[2021-01-15] MEDS: K and/or MAG REPLACEMENT MC SCH (20:00)
[2021-01-15] MEDS: heparin, porcine 5000 units/ml vial SQ SCH (20:43)
[2021-01-15] MEDS: docusate sod 100mg capsule PO SCH (20:43)
[2021-01-15] MEDS: methylPREDNISolone sod succ 125mg/2ml vial IV SCH (20:45)
[2021-01-15] MEDS ORDERED: temazepam 15mg capsule PO PRN (21:00)
[2021-01-15 22:00] VITALS: BP 127/69
[2021-01-16 02:00] VITALS: BP 133/60
[2021-01-16] MEDS: albuterol 2.5 MG/3 ML nebule NEB SCH ×6 (03:51→22:53)
[2021-01-16 06:00] VITALS: BP 177/95
--- NOTE | 2021-01-16 06:24 | NUR ---
Problems reprioritized. Patient report given, questions answered & plan of care reviewed with Jaja FONTANEZ.
[2021-01-16 07:16] LABS: BASOPHILS % (AUTO) 0.1 % (0-1); EOSINOPHILS % (AUTO) 0 % (0-6); HEMATOCRIT 41.1 % (35.0-45.0); HEMOGLOBIN 13.9 g/dl (12.0-16.0); LYMPHOCYTES # (AUTO) 0.8 X10'3 (1.1-4.8); LYMPHOCYTES % (AUTO) 6.1 % (21-51); MEAN CORPUSCULAR HEMOGLOBIN 32.6 PG (27.0-31.0); MEAN CORPUSCULAR HGB CONC 33.7 g/dL (33.0-36.5); MEAN CORPUSCULAR VOLUME 96.8 FL (78-98); MEAN PLATELET VOLUME 8.7 FL (7.4-10.4); MONOCYTES # (AUTO) 0.1 X10'3 (0-0.9); NEUTROPHILS # (AUTO) 12.6 X10'3 (1.8-7.7); NEUTROPHILS % (AUTO) 92.8 % (42-75); PLATELET COUNT 287 X10'3 (140-440); RED BLOOD COUNT 4.25 X10'6 (4.20-5.60); RED CELL DISTRIBUTION WIDTH 12.8 % (11.5-14.5); WHITE BLOOD COUNT 13.6 X10'3 (4.5-11.0)
[2021-01-16 07:21] LABS: ALANINE AMINOTRANSFERASE 31 U/L (12-78); ALBUMIN 3.1 G/DL (3.4-5.0); ALBUMIN/GLOBULIN RATIO 0.8 (1.1-1.5); ALKALINE PHOSPHATASE 99 IU/L (46-116); ANION GAP 8 (8-16); ASPARTATE AMINO TRANSFERASE 12 U/L (10-37); BILIRUBIN,TOTAL 0.3 MG/DL (0.1-1.0); BLOOD UREA NITROGEN 26 MG/DL (7-18); CALCIUM 9.5 MG/DL (8.5-10.1); CHLORIDE 107 MMOL/L (99-107); CREATININE 0.93 MG/DL (0.40-0.90); GLUCOSE 152 MG/DL (70-104); MAGNESIUM 2.2 MG/DL (1.5-2.4); POTASSIUM 4.1 MMOL/L (3.5-5.1); SODIUM 143 MMOL/L (135-145); TOTAL CARBON DIOXIDE 27.8 MMOL/L (24-32); TOTAL PROTEIN 7.1 G/DL (6.4-8.2); eGFR 62 ML/MIN
[2021-01-16] MEDS: carVEDilol 12.5mg tablet PO SCH ×3 (07:51→19:26)
[2021-01-16] MEDS: amLODIPine 5mg tablet PO SCH (07:52)
[2021-01-16] MEDS: lisinopril 20mg tablet PO SCH (07:52)
[2021-01-16] MEDS: atorvastatin 20mg tablet PO SCH (07:53)
[2021-01-16] MEDS: nicotine 21mg patch - 24 hr TD SCH (07:53)
[2021-01-16] MEDS: CefTRIAXone 2gm/D5W 50ml BAG 50 ML IV SCH (07:53)
[2021-01-16] MEDS: docusate sod 100mg capsule PO SCH ×2 (07:53→19:26)
[2021-01-16] MEDS: methylPREDNISolone sod succ 125mg/2ml vial IV SCH ×2 (07:53→19:26)
[2021-01-16] MEDS: K and/or MAG REPLACEMENT MC SCH ×2 (07:55→19:27)
[2021-01-16] MEDS: heparin, porcine 5000 units/ml vial SQ SCH ×2 (07:55→19:27)
--- NOTE | 2021-01-16 10:57 | NUR ---
PAGER ID: [phone] MESSAGE: kumar [id number], Reba Wilson. patient has two orders for coreg 12.5, do you want her to have both?
[2021-01-16 10:59] LABS: ABG BASE EXCESS 1.3 mmol/L (-2.0-2.0); ABG HCO3 26.6 mmol/L (22.0-26.0); ABG OXYGEN SATURATION 93.7 % (94-97); ABG PCO2 (T) 43.4 mmHg (32.0-45.0); ABG PO2 (T) 65.2 mmHg (75.0-100.0); ALLEN'S TEST POSITIVE; FCOHb 0.4 % (0.0-3.9); FLOW 2 L/min; FMetHb 0.2 % (0.0-1.5); FO2Hb 93.1 % (94-97); PATIENT TEMPERATURE 36.6; TOTAL HEMOGLOBIN 14.6 G/dl (12.0-16.0)
[2021-01-16 11:00] VITALS: BP 152/97
[2021-01-16] MEDS: acetaminophen 325mg tablet PO PRN (14:29)
[2021-01-16 15:00] VITALS: BP 149/79
[2021-01-16] MEDS: HYDROcodone/acetaminophen 5mg/325mg tablet PO PRN (15:38)
[2021-01-16 18:00] VITALS: BP 152/79
[2021-01-16] MEDS: lactobacillus rhamnosus 10,000 MMU CELLS/CAPSULE PO SCH (19:26)
[2021-01-16 22:00] VITALS: BP 156/79
[2021-01-17 02:00] VITALS: BP 155/79
[2021-01-17] MEDS: albuterol 2.5 MG/3 ML nebule NEB SCH ×6 (02:32→23:52)
[2021-01-17 06:00] VITALS: BP 186/79
[2021-01-17 06:53] LABS: BASOPHILS % (AUTO) 0.3 % (0-1); EOSINOPHILS % (AUTO) 0 % (0-6); HEMATOCRIT 39.4 % (35.0-45.0); HEMOGLOBIN 13.2 g/dl (12.0-16.0); LYMPHOCYTES # (AUTO) 0.9 X10'3 (1.1-4.8); LYMPHOCYTES % (AUTO) 5.4 % (21-51); MEAN CORPUSCULAR HEMOGLOBIN 32.7 PG (27.0-31.0); MEAN CORPUSCULAR HGB CONC 33.5 g/dL (33.0-36.5); MEAN CORPUSCULAR VOLUME 97.6 FL (78-98); MEAN PLATELET VOLUME 8.8 FL (7.4-10.4); MONOCYTES # (AUTO) 0.4 X10'3 (0-0.9); MONOCYTES % (AUTO) 2.5 % (2-12); NEUTROPHILS # (AUTO) 15.4 X10'3 (1.8-7.7); NEUTROPHILS % (AUTO) 91.8 % (42-75); PLATELET COUNT 278 X10'3 (140-440); RED BLOOD COUNT 4.04 X10'6 (4.20-5.60); RED CELL DISTRIBUTION WIDTH 12.9 % (11.5-14.5); WHITE BLOOD COUNT 16.8 X10'3 (4.5-11.0)
[2021-01-17 07:15] LABS: ALANINE AMINOTRANSFERASE 28 U/L (12-78); ALBUMIN/GLOBULIN RATIO 0.8 (1.1-1.5); ALKALINE PHOSPHATASE 90 IU/L (46-116); ANION GAP 6 (8-16); ASPARTATE AMINO TRANSFERASE 10 U/L (10-37); BILIRUBIN,TOTAL 0.2 MG/DL (0.1-1.0); BLOOD UREA NITROGEN 24 MG/DL (7-18); BUN/CREATININE RATIO 24.7 (6.6-38.0); CALCIUM 9.2 MG/DL (8.5-10.1); CHLORIDE 107 MMOL/L (99-107); CREATININE 0.97 MG/DL (0.40-0.90); GLUCOSE 130 MG/DL (70-104); MAGNESIUM 2.2 MG/DL (1.5-2.4); POTASSIUM 4.3 MMOL/L (3.5-5.1); SODIUM 142 MMOL/L (135-145); TOTAL CARBON DIOXIDE 28.9 MMOL/L (24-32); TOTAL PROTEIN 6.7 G/DL (6.4-8.2); eGFR 59 ML/MIN
[2021-01-17] MEDS: heparin, porcine 5000 units/ml vial SQ SCH ×2 (07:46→19:48)
[2021-01-17] MEDS: methylPREDNISolone sod succ 125mg/2ml vial IV SCH ×2 (07:46→19:48)
[2021-01-17] MEDS: CefTRIAXone 2gm/D5W 50ml BAG 50 ML IV SCH (07:46)
[2021-01-17] MEDS: amLODIPine 5mg tablet PO SCH (07:46)
[2021-01-17] MEDS: docusate sod 100mg capsule PO SCH ×2 (07:46→19:46)
[2021-01-17] MEDS: nicotine 21mg patch - 24 hr TD SCH (07:47)
[2021-01-17] MEDS: carVEDilol 12.5mg tablet PO SCH ×2 (07:47→19:46)
[2021-01-17] MEDS: lactobacillus rhamnosus 10,000 MMU CELLS/CAPSULE PO SCH ×2 (07:47→19:47)
[2021-01-17] MEDS: K and/or MAG REPLACEMENT MC SCH ×2 (07:47→20:00)
[2021-01-17] MEDS: atorvastatin 20mg tablet PO SCH (07:47)
[2021-01-17] MEDS: lisinopril 20mg tablet PO SCH (07:52)
[2021-01-17] MEDS ORDERED: furosemide 20 MG/2 ML vial IV ONE (09:10)
[2021-01-17 11:00] VITALS: BP 144/83
[2021-01-17] MEDS: normal saline 1000ml 1,000 ML IV SCH (11:19)
[2021-01-17] MEDS: HYDROcodone/acetaminophen 5mg/325mg tablet PO PRN ×2 (14:25→21:09)
[2021-01-17 15:00] VITALS: BP 160/81
[2021-01-17] MEDS ORDERED: furosemide 40mg/4ml inj IV ONE (17:00)
[2021-01-17 18:00] VITALS: BP 164/87
[2021-01-17 22:00] VITALS: BP 154/86
[2021-01-18 02:00] VITALS: BP 147/82
[2021-01-18] MEDS: albuterol 2.5 MG/3 ML nebule NEB SCH (03:17)
--- NOTE | 2021-01-18 04:31 | NUR ---
Patient in room PCU 3024. I have received report from Jaja FONTANEZ and had the opportunity to ask questions and assume patient care.
[2021-01-18] MEDS ORDERED: LORazepam 1 MG tablet PO PRN (05:50)
[2021-01-18] MEDS ORDERED: albuterol 2.5 MG/3 ML nebule NEB PRN (05:55)
[2021-01-18 06:00] VITALS: BP 168/96
--- NOTE | 2021-01-18 06:12 | NUR ---
Problems reprioritized. Patient report given, questions answered & plan of care reviewed with Jaja FONTANEZ.
[2021-01-18] MEDS: ipratropium/albuterol 3ml nebule NEB SCH ×5 (07:08→23:12)
[2021-01-18] MEDS: carVEDilol 12.5mg tablet PO SCH ×2 (07:34→19:42)
[2021-01-18] MEDS: atorvastatin 20mg tablet PO SCH (07:34)
[2021-01-18] MEDS: lactobacillus rhamnosus 10,000 MMU CELLS/CAPSULE PO SCH ×2 (07:34→19:42)
[2021-01-18] MEDS: docusate sod 100mg capsule PO SCH ×2 (07:34→19:43)
[2021-01-18] MEDS: amLODIPine 5mg tablet PO SCH (07:35)
[2021-01-18] MEDS: lisinopril 20mg tablet PO SCH (07:35)
[2021-01-18] MEDS: furosemide 20 MG/2 ML vial IV SCH ×2 (07:36→19:43)
[2021-01-18] MEDS: CefTRIAXone 2gm/D5W 50ml BAG 50 ML IV SCH (07:36)
[2021-01-18] MEDS: methylPREDNISolone sod succ 125mg/2ml vial IV SCH (07:37)
[2021-01-18] MEDS: nicotine 21mg patch - 24 hr TD SCH (07:38)
[2021-01-18] MEDS: K and/or MAG REPLACEMENT MC SCH ×2 (08:00→20:00)
[2021-01-18] MEDS: heparin, porcine 5000 units/ml vial SQ SCH ×2 (08:00→19:43)
[2021-01-18 08:19] LABS: ALBUMIN 3.2 G/DL (3.4-5.0); ANION GAP 9 (8-16); BASOPHILS % (AUTO) 0.1 % (0-1); BLOOD UREA NITROGEN 29 MG/DL (7-18); CALCIUM 9.2 MG/DL (8.5-10.1); CHLORIDE 106 MMOL/L (99-107); EOSINOPHILS % (AUTO) 0 % (0-6); GLUCOSE 110 MG/DL (70-104); HEMATOCRIT 42.7 % (35.0-45.0); HEMOGLOBIN 14.4 g/dl (12.0-16.0); LYMPHOCYTES # (AUTO) 0.5 X10'3 (1.1-4.8); LYMPHOCYTES % (AUTO) 3.8 % (21-51); MEAN CORPUSCULAR HEMOGLOBIN 32.7 PG (27.0-31.0); MEAN CORPUSCULAR HGB CONC 33.8 g/dL (33.0-36.5); MEAN CORPUSCULAR VOLUME 96.8 FL (78-98); MEAN PLATELET VOLUME 8.9 FL (7.4-10.4); MONOCYTES # (AUTO) 0.7 X10'3 (0-0.9); MONOCYTES % (AUTO) 4.9 % (2-12); NEUTROPHILS # (AUTO) 12.8 X10'3 (1.8-7.7); NEUTROPHILS % (AUTO) 91.2 % (42-75); PLATELET COUNT 284 X10'3 (140-440); RED BLOOD COUNT 4.41 X10'6 (4.20-5.60); RED CELL DISTRIBUTION WIDTH 12.7 % (11.5-14.5); SODIUM 144 MMOL/L (135-145); TOTAL CARBON DIOXIDE 29.5 MMOL/L (24-32); WHITE BLOOD COUNT 14.1 X10'3 (4.5-11.0); eGFR 57 ML/MIN
[2021-01-18 08:38] LABS: ALANINE AMINOTRANSFERASE 32 U/L (12-78); ALBUMIN 3.2 G/DL (3.4-5.0); ALBUMIN/GLOBULIN RATIO 0.8 (1.1-1.5); ALKALINE PHOSPHATASE 97 IU/L (46-116); ANION GAP 7 (8-16); ASPARTATE AMINO TRANSFERASE 13 U/L (10-37); BILIRUBIN,TOTAL 0.2 MG/DL (0.1-1.0); BLOOD UREA NITROGEN 29 MG/DL (7-18); BUN/CREATININE RATIO 29.9 (6.6-38.0); CALCIUM 9.2 MG/DL (8.5-10.1); CHLORIDE 107 MMOL/L (99-107); CREATININE 0.97 MG/DL (0.40-0.90); GLUCOSE 109 MG/DL (70-104); MAGNESIUM 2.2 MG/DL (1.5-2.4); SODIUM 144 MMOL/L (135-145); TOTAL PROTEIN 7.2 G/DL (6.4-8.2); eGFR 59 ML/MIN
[2021-01-18 11:00] VITALS: BP 127/77
--- NOTE | 2021-01-18 11:51 | NUR ---
O2 Sat at rest on room air:_88__% If below 89%: Recovery O2 Sat at rest on _3__LPM:__92_%:___% via___nasal cannula (mask/nasal cannula, etc..) No further documentation is necessary. If O2 Sat did not drop below 89% on room air,ambulate patient on room air. O2 Sat while ambulating on room air:___% Recovery O2 Sat while ambulating on ___LPM:___% No further documentation is necessary. If patient does not drop below 89% while ambulating, he/she does not qualify for home O2.
[2021-01-18] MEDS: acetaminophen 325mg tablet PO PRN (12:37)
[2021-01-18 15:00] VITALS: BP 124/56
[2021-01-18 18:00] VITALS: BP 124/56
--- NOTE | 2021-01-18 18:00 | NUR ---
Patient in room PCU 3024. I have received report from Jaja FONTANEZ and had the opportunity to ask questions and assume patient care.
[2021-01-18] MEDS: HYDROcodone/acetaminophen 5mg/325mg tablet PO PRN (19:42)
[2021-01-18 22:00] VITALS: BP 147/89
[2021-01-19 02:00] VITALS: BP 162/88
[2021-01-19] MEDS: ipratropium/albuterol 3ml nebule NEB SCH ×4 (03:16→15:59)
[2021-01-19] MEDS: HYDROcodone/acetaminophen 5mg/325mg tablet PO PRN (05:14)
--- NOTE | 2021-01-19 06:14 | NUR ---
Problems reprioritized. Patient report given, questions answered & plan of care reviewed with Jaja FONTANEZ.
[2021-01-19 06:19] LABS: BASOPHILS % (AUTO) 0.3 % (0-1); EOSINOPHILS % (AUTO) 0.3 % (0-6); HEMOGLOBIN 13.9 g/dl (12.0-16.0); LYMPHOCYTES # (AUTO) 2.3 X10'3 (1.1-4.8); LYMPHOCYTES % (AUTO) 17.2 % (21-51); MEAN CORPUSCULAR HEMOGLOBIN 32.3 PG (27.0-31.0); MEAN CORPUSCULAR HGB CONC 33.1 g/dL (33.0-36.5); MEAN CORPUSCULAR VOLUME 97.6 FL (78-98); MONOCYTES # (AUTO) 1.3 X10'3 (0-0.9); MONOCYTES % (AUTO) 9.5 % (2-12); NEUTROPHILS # (AUTO) 9.6 X10'3 (1.8-7.7); NEUTROPHILS % (AUTO) 72.7 % (42-75); PLATELET COUNT 296 X10'3 (140-440); RED CELL DISTRIBUTION WIDTH 13.4 % (11.5-14.5); WHITE BLOOD COUNT 13.3 X10'3 (4.5-11.0)
[2021-01-19 06:35] LABS: ALANINE AMINOTRANSFERASE 38 U/L (12-78); ALBUMIN 2.9 G/DL (3.4-5.0); ALBUMIN/GLOBULIN RATIO 0.8 (1.1-1.5); ALKALINE PHOSPHATASE 85 IU/L (46-116); ANION GAP 7 (8-16); ASPARTATE AMINO TRANSFERASE 22 U/L (10-37); BILIRUBIN,TOTAL 0.2 MG/DL (0.1-1.0); BLOOD UREA NITROGEN 34 MG/DL (7-18); BUN/CREATININE RATIO 32.4 (6.6-38.0); CALCIUM 9.1 MG/DL (8.5-10.1); CHLORIDE 103 MMOL/L (99-107); CREATININE 1.05 MG/DL (0.40-0.90); GLUCOSE 93 MG/DL (70-104); MAGNESIUM 2.3 MG/DL (1.5-2.4); POTASSIUM 3.6 MMOL/L (3.5-5.1); SODIUM 142 MMOL/L (135-145); TOTAL CARBON DIOXIDE 32.4 MMOL/L (24-32); TOTAL PROTEIN 6.4 G/DL (6.4-8.2); eGFR 54 ML/MIN
--- NOTE | 2021-01-19 06:58 | NUR ---
Patient in room PCU 3024. I have received report from Dedra and had the opportunity to ask questions and assume patient care.
[2021-01-19] MEDS: amLODIPine 5mg tablet PO SCH (07:45)
[2021-01-19] MEDS: lactobacillus rhamnosus 10,000 MMU CELLS/CAPSULE PO SCH (07:46)
[2021-01-19] MEDS: atorvastatin 20mg tablet PO SCH (07:46)
[2021-01-19] MEDS: docusate sod 100mg capsule PO SCH (07:46)
[2021-01-19] MEDS: carVEDilol 12.5mg tablet PO SCH (07:46)
[2021-01-19] MEDS: nicotine 21mg patch - 24 hr TD SCH (07:46)
[2021-01-19 07:47] VITALS: BP_SYST 188
[2021-01-19] MEDS: furosemide 20 MG/2 ML vial IV SCH (07:47)
[2021-01-19] MEDS: CefTRIAXone 2gm/D5W 50ml BAG 50 ML IV SCH (07:47)
[2021-01-19] MEDS: lisinopril 20mg tablet PO SCH (07:47)
[2021-01-19] MEDS: heparin, porcine 5000 units/ml vial SQ SCH (07:47)
[2021-01-19] MEDS ORDERED: predniSONE 20 mg tablet PO SCH (08:00)
[2021-01-19] MEDS: K and/or MAG REPLACEMENT MC SCH (08:00)
[2021-01-19] MEDS ORDERED: FURO-150 PO (09:36)
[2021-01-19] MEDS: normal saline 1000ml 1,000 ML IV SCH (11:32)
--- NOTE | 2021-01-21 10:00 | NUR ---
CASE MANAGEMENT DISCHARGE FOLLOW UP: Spoke with pt via telephone. Reports that she is "doing okay," but tired, admits to cough that is lessening; denies CP, fever. Verbalizes understanding of s/sx requiring further evaluation/emergent assistance. Verbalizes understanding of new and current medications. Verbalizes compliance with MD discharge instructions. Verbalizes understanding of the importance in making/keeping follow-up appointments, states will call PCP to set up f/u appointment as she missed her last one because she was admitted to the hospital. Pt states having a difficult time quitting smoking, wants to know if hospital can provide Rx for Chantix, advised that she will need to request that through her PCP, pt states that she will do so. States no further questions/concerns at this time.
== END 2021-01-19 17:38 | disposition home or self-care (01) | DRG 194 ==
LOC: ER 08:15 → ED HOLD 11:14 → EDBEDREQ 12:55 → PCU 3S 13:42
PROVIDERS: ADMIT Internal Medicine; ATTEND Internal Medicine
DX: I11.0 Hypertensive heart disease with heart failure (principal); J44.1 Chronic obstructive pulmonary disease with (acute) exacerbation; I50.813 Acute on chronic right heart failure; J96.01 Acute respiratory failure with hypoxia; I42.0 Dilated cardiomyopathy; N19 Unspecified kidney failure; F12.90 Cannabis use, unspecified, uncomplicated; E78.5 Hyperlipidemia, unspecified; F17.210 Nicotine dependence, cigarettes, uncomplicated; Z79.899 Other long term (current) drug therapy; Z99.81 Dependence on supplemental oxygen; Z91.041 Radiographic dye allergy status; Z91.013 Allergy to seafood; Z91.018 Allergy to other foods; Z83.3 Family history of diabetes mellitus; Z82.49 Family history of ischemic heart disease and other diseases of the circulatory system; Z71.6 Tobacco abuse counseling; Z71.51 Drug abuse counseling and surveillance of drug abuser
CPT/HCPCS: 36415; 36600; 71045; 80048; 80053; 82803; 83605; 83735; 83880; 84145; 85018; 85025; 87040; 87081; 93005; 94640; 94760; 97116; 97161; 97530; 99285; A7015; G0378; J0456; J0696; J1644; J1940; J2270; J2930; J7030; J7512

== ENCOUNTER 2021-02-05 21:08 | Emergency (ER) | payer MEDICAID, OTHER ==
[~2021-02-05] VITALS: Ht 162.6 cm; Wt 63.6 kg
[~2021-02-05 21:08] MED LIST changes: +AMLO5TAB16 PO; +FURO-150 PO; -PRED20TA PO
[2021-02-05] MEDS ORDERED: ipratropium/albuterol 3ml nebule NEB ONE (21:35)
[2021-02-05 22:03] LABS: BASOPHILS # (AUTO) 0.1 X10'3 (0-0.2); EOSINOPHILS # (AUTO) 1.1 X10'3 (0-0.9); EOSINOPHILS % (AUTO) 14.3 % (0-6); HEMATOCRIT 39.8 % (35.0-45.0); HEMOGLOBIN 13.4 g/dl (12.0-16.0); LYMPHOCYTES # (AUTO) 1.7 X10'3 (1.1-4.8); LYMPHOCYTES % (AUTO) 23.8 % (21-51); MEAN CORPUSCULAR HEMOGLOBIN 32.4 PG (27.0-31.0); MEAN CORPUSCULAR HGB CONC 33.7 g/dL (33.0-36.5); MEAN CORPUSCULAR VOLUME 95.9 FL (78-98); MEAN PLATELET VOLUME 9.2 FL (7.4-10.4); MONOCYTES # (AUTO) 0.6 X10'3 (0-0.9); MONOCYTES % (AUTO) 7.8 % (2-12); NEUTROPHILS # (AUTO) 3.9 X10'3 (1.8-7.7); NEUTROPHILS % (AUTO) 53.1 % (42-75); PLATELET COUNT 260 X10'3 (140-440); RED BLOOD COUNT 4.15 X10'6 (4.20-5.60); RED CELL DISTRIBUTION WIDTH 12.6 % (11.5-14.5); WHITE BLOOD COUNT 7.3 X10'3 (4.5-11.0)
[2021-02-05 22:19] LABS: ALANINE AMINOTRANSFERASE 36 U/L (12-78); ALBUMIN 3.5 G/DL (3.4-5.0); ALKALINE PHOSPHATASE 96 IU/L (46-116); ANION GAP 10 (8-16); ASPARTATE AMINO TRANSFERASE 24 U/L (10-37); BILIRUBIN,TOTAL 0.3 MG/DL (0.1-1.0); BLOOD UREA NITROGEN 17 MG/DL (7-18); BUN/CREATININE RATIO 18.1 (6.6-38.0); CALCIUM 8.9 MG/DL (8.5-10.1); CHLORIDE 104 MMOL/L (99-107); CREATININE 0.94 MG/DL (0.40-0.90); GLUCOSE 97 MG/DL (70-104); POTASSIUM 3.4 MMOL/L (3.5-5.1); SODIUM 144 MMOL/L (135-145); TOTAL PROTEIN 6.9 G/DL (6.4-8.2); eGFR 61 ML/MIN
[2021-02-05] MEDS ORDERED: prednisone 10mg tablet PO SCH (22:25)
[2021-02-05] MEDS ORDERED: azithromycin 250mg tablet PO ONE (22:25)
[2021-02-05] MEDS ORDERED: acetaminophen 325mg tablet PO ONE (22:25)
[2021-02-05] MEDS ORDERED: AZIT-63 PO ×2 (22:26→23:14)
[2021-02-05] MEDS ORDERED: PRED20TA PO ×2 (22:26→23:14)
[2021-02-05 22:45] VITALS: BP 101/72
[2021-02-05] MEDS ORDERED: predniSONE 20 mg tablet PO ONE (22:45)
[2021-02-05] MEDS ORDERED: ALBU8.5H8 IH (23:14)
== END 2021-02-05 23:24 | disposition home or self-care (01) ==
LOC: ER 21:08
DX: J44.1 Chronic obstructive pulmonary disease with (acute) exacerbation (principal); Z20.822 Contact with and (suspected) exposure to COVID-19; R05 Cough; R51.9 Headache, unspecified; Z56.0 Unemployment, unspecified; Z91.013 Allergy to seafood; Z91.018 Allergy to other foods; Z88.8 Allergy status to other drugs, medicaments and biological substances; Z79.2 Long term (current) use of antibiotics; Z79.899 Other long term (current) drug therapy
CPT/HCPCS: 36415; 71045; 80053; 83605; 83880; 84484; 85025; 87040; 87635; 93005; 94640; 99285; C9803; J7512; 94760

== ENCOUNTER 2021-03-07 20:34 | Inpatient (IN) | payer MEDICAID ==
[~2021-03-07] VITALS: Ht 160 cm; Wt 63.6 kg
[~2021-03-07 20:34] MED LIST changes: +AZIT-63 PO; +PRED20TA PO
[2021-03-07] MEDS ORDERED: diphenhydrAMINE 50 mg/ml inj IV ONE (20:55)
[2021-03-07] MEDS ORDERED: albuterol 2.5 MG/3 ML nebule CONTNEB PRN (20:55)
[2021-03-07] MEDS ORDERED: methylPREDNISolone sod succ 125mg/2ml vial IV ONE (20:55)
[2021-03-07 21:04] LABS: BASOPHILS # (AUTO) 0.1 X10'3 (0-0.2); EOSINOPHILS # (AUTO) 0.9 X10'3 (0-0.9); EOSINOPHILS % (AUTO) 10.8 % (0-6); HEMATOCRIT 38.6 % (35.0-45.0); HEMOGLOBIN 13.1 g/dl (12.0-16.0); LYMPHOCYTES # (AUTO) 1.6 X10'3 (1.1-4.8); LYMPHOCYTES % (AUTO) 19.9 % (21-51); MEAN CORPUSCULAR HEMOGLOBIN 33.8 PG (27.0-31.0); MEAN CORPUSCULAR VOLUME 99.6 FL (78-98); MEAN PLATELET VOLUME 8.9 FL (7.4-10.4); MONOCYTES # (AUTO) 0.5 X10'3 (0-0.9); MONOCYTES % (AUTO) 6.6 % (2-12); NEUTROPHILS # (AUTO) 5.1 X10'3 (1.8-7.7); NEUTROPHILS % (AUTO) 61.7 % (42-75); PLATELET COUNT 299 X10'3 (140-440); RED BLOOD COUNT 3.88 X10'6 (4.20-5.60); RED CELL DISTRIBUTION WIDTH 14.2 % (11.5-14.5); WHITE BLOOD COUNT 8.2 X10'3 (4.5-11.0)
[2021-03-07 21:13] LABS: ALANINE AMINOTRANSFERASE 34 U/L (12-78); ALBUMIN 3.6 G/DL (3.4-5.0); ALBUMIN/GLOBULIN RATIO 1.1 (1.1-1.5); ALKALINE PHOSPHATASE 89 IU/L (46-116); ANION GAP 8 (8-16); ASPARTATE AMINO TRANSFERASE 25 U/L (10-37); BILIRUBIN,TOTAL 0.3 MG/DL (0.1-1.0); BLOOD UREA NITROGEN 21 MG/DL (7-18); BUN/CREATININE RATIO 24.1 (6.6-38.0); CALCIUM 8.9 MG/DL (8.5-10.1); CHLORIDE 105 MMOL/L (99-107); CREATININE 0.87 MG/DL (0.40-0.90); GLUCOSE 106 MG/DL (70-104); SODIUM 146 MMOL/L (135-145); TOTAL CARBON DIOXIDE 32.6 MMOL/L (24-32); eGFR 66 ML/MIN
[2021-03-07 21:15] LABS: POTASSIUM 4.3 MMOL/L (3.5-5.1)
[2021-03-07] MEDS ORDERED: normal saline 1000ml 1,000 ML IV ONE (22:35)
[2021-03-07] MEDS ORDERED: ondansetron/PF 4mg/2ml inj IV ONE (22:35)
[2021-03-08] MEDS ORDERED: meclizine 12.5mg tablet PO ONE (02:40)
[2021-03-08] MEDS ORDERED: ondansetron/PF 4mg/2ml inj IV PRN (02:50)
[2021-03-08] MEDS ORDERED: acetaminophen 325mg tablet PO PRN (02:50)
[2021-03-08] MEDS ORDERED: potassium Cl 20 mEq SR tablet PO PRN ×2 (02:50)
[2021-03-08] MEDS ORDERED: mag hydrox/Alum hydrox/simeth 30ml oral suspension PO PRN (02:50)
[2021-03-08] MEDS ORDERED: potassium Cl 40MEQ/1/2NS 520ml 520 ML IV PRN ×2 (02:50)
[2021-03-08] MEDS ORDERED: magnesium hydroxide 30ml (MOM) UD suspension PO PRN (02:50)
[2021-03-08] MEDS ORDERED: albuterol 2.5 MG/3 ML nebule NEB PRN (02:55)
[2021-03-08] MEDS ORDERED: POTA10TA19 PO (02:58)
[2021-03-08] MEDS ORDERED: LISI20TA28 PO (02:58)
[2021-03-08 05:00] VITALS: BP 142/82
[2021-03-08] MEDS ORDERED: TIOT4MIS3 INH (05:19)
--- NOTE | 2021-03-08 06:40 | NUR ---
Problems reprioritized. Patient report given, questions answered & plan of care reviewed with ELLE. Addendum: 03/08/21 at 0641 by Richard Reed RN Amended: Links added.
--- NOTE | 2021-03-08 06:49 | NUR ---
Patient in room CHOLO 356. I have received report from Bartolo FONTANEZ and had the opportunity to ask questions and assume patient care.
[2021-03-08 07:00] VITALS: BP 126/67
[2021-03-08] MEDS: methylPREDNISolone sod succ/PF 40mg inj. IV SCH ×2 (07:51→20:38)
[2021-03-08] MEDS: heparin, porcine 5000 units/ml vial SQ SCH ×2 (07:52→20:40)
[2021-03-08] MEDS: K and/or MAG REPLACEMENT MC SCH ×2 (07:52→20:00)
[2021-03-08] MEDS ORDERED: FURO20TA4 PO (07:55)
[2021-03-08] MEDS ORDERED: ALBU8HFA PO (07:55)
[2021-03-08] MEDS ORDERED: IPRA4AER IH (07:55)
[2021-03-08] MEDS ORDERED: ATOR40TA72 PO (07:56)
[2021-03-08] MEDS: meclizine 12.5mg tablet PO PRN ×2 (09:27→20:57)
[2021-03-08] MEDS ORDERED: guaiFENesin/DM/phenylephrine syrup 120ml bottle PO PRN (10:10)
[2021-03-08] MEDS ORDERED: guaiFENesin 200 MG/10 ML oral syrup UD cup PO PRN (10:20)
[2021-03-08 11:00] VITALS: BP 127/76
--- NOTE | 2021-03-08 18:15 | NUR ---
Patient in room CHOLO 356. I have received report from Ngoc FONTANEZ and had the opportunity to ask questions and assume patient care. Rashaad FONTANEZ
--- NOTE | 2021-03-08 18:49 | NUR ---
Problems reprioritized. Patient report given, questions answered & plan of care reviewed with Zion FONTANEZ.
--- NOTE | 2021-03-08 18:58 | NUR ---
Patient in room CHOLO 356. I have received report from HUSEYIN José and had the opportunity to ask questions and assume patient care.
[2021-03-08 19:40] VITALS: BP 138/63
[2021-03-08] MEDS ORDERED: aspirin/acetaminophen/caffeine tablet PO PRN (20:10)
[2021-03-08 23:11] VITALS: BP 157/98
--- NOTE | 2021-03-09 06:33 | NUR ---
I agree with assessment, documentation, medication pass, and report HUSEYIN Neil has done during this shift. Report was given to HUSEYIN Elkins Addendum: 03/09/21 at 0634 by Zion Escobar RN report was given to HUSEYIN Suárez
--- NOTE | 2021-03-09 06:34 | NUR ---
Problems reprioritized. Patient report given, questions answered & plan of care reviewed with Cassidy FONTANEZ. Rashaad FONTANEZ
--- NOTE | 2021-03-09 06:59 | NUR ---
Patient in room CHOLO 356. I have received report from HUSEYIN Donovan and had the opportunity to ask questions and assume patient care.
[2021-03-09 07:56] LABS: BASOPHILS % (AUTO) 0.1 % (0-1); EOSINOPHILS % (AUTO) 0 % (0-6); HEMATOCRIT 36.5 % (35.0-45.0); HEMOGLOBIN 12.3 g/dl (12.0-16.0); LYMPHOCYTES # (AUTO) 1.2 X10'3 (1.1-4.8); LYMPHOCYTES % (AUTO) 7.6 % (21-51); MEAN CORPUSCULAR HEMOGLOBIN 33.5 PG (27.0-31.0); MEAN CORPUSCULAR HGB CONC 33.6 g/dL (33.0-36.5); MEAN CORPUSCULAR VOLUME 99.7 FL (78-98); MEAN PLATELET VOLUME 8.8 FL (7.4-10.4); MONOCYTES # (AUTO) 0.5 X10'3 (0-0.9); MONOCYTES % (AUTO) 3.6 % (2-12); NEUTROPHILS # (AUTO) 13.4 X10'3 (1.8-7.7); NEUTROPHILS % (AUTO) 88.7 % (42-75); PLATELET COUNT 301 X10'3 (140-440); RED BLOOD COUNT 3.66 X10'6 (4.20-5.60); RED CELL DISTRIBUTION WIDTH 14.3 % (11.5-14.5); WHITE BLOOD COUNT 15.1 X10'3 (4.5-11.0)
--- NOTE | 2021-03-09 07:57 | NUR ---
I have received report from Zion FONTANEZ and was able to ask any questions and had them answered
[2021-03-09 08:00] VITALS: BP 146/74
[2021-03-09 08:03] LABS: ALANINE AMINOTRANSFERASE 35 U/L (12-78); ALBUMIN 3.3 G/DL (3.4-5.0); ALKALINE PHOSPHATASE 82 IU/L (46-116); ANION GAP 8 (8-16); ASPARTATE AMINO TRANSFERASE 18 U/L (10-37); BILIRUBIN,TOTAL 0.2 MG/DL (0.1-1.0); BLOOD UREA NITROGEN 25 MG/DL (7-18); BUN/CREATININE RATIO 28.1 (6.6-38.0); CALCIUM 9.2 MG/DL (8.5-10.1); CHLORIDE 109 MMOL/L (99-107); CREATININE 0.89 MG/DL (0.40-0.90); GLUCOSE 116 MG/DL (70-104); POTASSIUM 4.1 MMOL/L (3.5-5.1); SODIUM 146 MMOL/L (135-145); TOTAL CARBON DIOXIDE 29.4 MMOL/L (24-32); TOTAL PROTEIN 6.6 G/DL (6.4-8.2); eGFR 65 ML/MIN
[2021-03-09] MEDS: heparin, porcine 5000 units/ml vial SQ SCH (08:53)
[2021-03-09] MEDS: methylPREDNISolone sod succ/PF 40mg inj. IV SCH (08:54)
[2021-03-09] MEDS: meclizine 12.5mg tablet PO PRN (08:57)
[2021-03-09] MEDS ORDERED: PRED10TA23 PO (10:29)
[2021-03-09] MEDS ORDERED: MECL-226 PO (10:29)
[2021-03-09 11:00] VITALS: BP 134/86
--- NOTE | 2021-03-09 13:01 | NUR ---
Pt discharged home in stable condition. Able to walk around nurse station on R/A o2sat 95%. Discharge and medication instructions given to pt. Home medication sent with pt. IV removed. Pt was escorted to main lobby on W/C. Left the hospital via private vehicle accompanied by family member.
== END 2021-03-09 12:25 | disposition home or self-care (01) | DRG 111 ==
LOC: ER 20:35 → ED HOLD 03-08 02:48 → SUR 3N 03-08 04:21
PROVIDERS: ADMIT Internal Medicine; ATTEND Internal Medicine
DX: H81.13 Benign paroxysmal vertigo, bilateral (principal); J44.1 Chronic obstructive pulmonary disease with (acute) exacerbation; E78.5 Hyperlipidemia, unspecified; I10 Essential (primary) hypertension; R09.02 Hypoxemia; Z20.822 Contact with and (suspected) exposure to COVID-19; Z79.899 Other long term (current) drug therapy; Z82.49 Family history of ischemic heart disease and other diseases of the circulatory system; Z83.3 Family history of diabetes mellitus; Z87.891 Personal history of nicotine dependence; Z91.041 Radiographic dye allergy status; Z91.013 Allergy to seafood; Z91.018 Allergy to other foods
CPT/HCPCS: 36415; 71045; 80053; 85025; 87081; 87635; 93005; 94640; 94760; 96374; 96375; 99285; A7015; C9803; G0378; J1200; J1644; J2405; J2920; J2930; J7030; J8597

== ENCOUNTER 2021-05-18 06:28 | Inpatient (IN) | payer MEDICAID ==
[~2021-05-18] VITALS: Ht 160 cm; Wt 65.9 kg
[~2021-05-18 06:28] MED LIST changes: -ALBU8.5H8 IH; +ALBU8HFA PO; -ATOR20TA66 PO; +ATOR40TA72 PO; -AZIT-63 PO; -FURO-150 PO; +FURO20TA4 PO; +LISI20TA28 PO; -LISI40TA13 PO; +MECL-226 PO; +POTA10TA19 PO; -PRED20TA PO; +TIOT4MIS3 INH
[2021-05-18] MEDS ORDERED: ipratropium/albuterol 3ml nebule NEB ONE ×2 (06:30→08:05)
[2021-05-18] MEDS ORDERED: methylPREDNISolone sod succ 125mg/2ml vial IV ONE (06:30)
[2021-05-18] MEDS ORDERED: acetaminophen 325mg tablet PO ONE (07:05)
[2021-05-18 07:07] LABS: BASOPHILS # (AUTO) 0.1 X10'3 (0-0.2); BASOPHILS % (AUTO) 0.6 % (0-1); EOSINOPHILS # (AUTO) 1.6 X10'3 (0-0.9); EOSINOPHILS % (AUTO) 19.2 % (0-6); HEMATOCRIT 41.2 % (35.0-45.0); HEMOGLOBIN 13.9 g/dl (12.0-16.0); LYMPHOCYTES # (AUTO) 1.5 X10'3 (1.1-4.8); LYMPHOCYTES % (AUTO) 17.4 % (21-51); MEAN CORPUSCULAR HEMOGLOBIN 34.6 PG (27.0-31.0); MEAN CORPUSCULAR HGB CONC 33.7 g/dL (33.0-36.5); MEAN CORPUSCULAR VOLUME 102.7 FL (78-98); MEAN PLATELET VOLUME 8.2 FL (7.4-10.4); MONOCYTES # (AUTO) 0.5 X10'3 (0-0.9); MONOCYTES % (AUTO) 6.4 % (2-12); NEUTROPHILS # (AUTO) 4.7 X10'3 (1.8-7.7); NEUTROPHILS % (AUTO) 56.4 % (42-75); PLATELET COUNT 277 X10'3 (140-440); RED BLOOD COUNT 4.01 X10'6 (4.20-5.60); RED CELL DISTRIBUTION WIDTH 13.7 % (11.5-14.5); WHITE BLOOD COUNT 8.4 X10'3 (4.5-11.0)
[2021-05-18 07:22] LABS: ALANINE AMINOTRANSFERASE 28 U/L (12-78); ALBUMIN 3.4 G/DL (3.4-5.0); ALBUMIN/GLOBULIN RATIO 0.9 (1.1-1.5); ALKALINE PHOSPHATASE 99 IU/L (46-116); ANION GAP 9 (8-16); ASPARTATE AMINO TRANSFERASE 16 U/L (10-37); BILIRUBIN,TOTAL 0.3 MG/DL (0.1-1.0); BLOOD UREA NITROGEN 11 MG/DL (7-18); BUN/CREATININE RATIO 12.5 (6.6-38.0); CALCIUM 8.6 MG/DL (8.5-10.1); CHLORIDE 105 MMOL/L (99-107); CREATININE 0.88 MG/DL (0.40-0.90); GLUCOSE 107 MG/DL (70-104); SODIUM 143 MMOL/L (135-145); TOTAL CARBON DIOXIDE 28.8 MMOL/L (24-32); TOTAL PROTEIN 7.2 G/DL (6.4-8.2); eGFR 66 ML/MIN
[2021-05-18] MEDS ORDERED: labetalol 20mg/4ml (5mg/ml) syringe IV ONE (07:35)
[2021-05-18] MEDS ORDERED: ketorolac trometh. 30mg/ml inj. IV ONE (08:05)
[2021-05-18] MEDS ORDERED: HYDROcodone/acetaminophen 5mg/325mg tablet PO PRN (08:20)
[2021-05-18] MEDS ORDERED: magnesium 2GM in 50ml NS 50 ML IV PRN (08:20)
[2021-05-18] MEDS ORDERED: magnesium Cl slow-release 64mg tablet PO PRN (08:20)
[2021-05-18] MEDS ORDERED: magnesium hydroxide 30ml (MOM) UD suspension PO PRN (08:20)
[2021-05-18] MEDS ORDERED: HYDROcodone/acetaminophen 10/325mg tab PO PRN (08:20)
[2021-05-18] MEDS ORDERED: potassium Cl 20 mEq SR tablet PO PRN ×2 (08:20)
[2021-05-18] MEDS ORDERED: bisacodyl 10mg suppository rectal RC PRN (08:20)
[2021-05-18] MEDS ORDERED: acetaminophen 650mg rectal suppository RC PRN (08:20)
[2021-05-18] MEDS ORDERED: potassium Cl 40MEQ/1/2NS 520ml 520 ML IV PRN ×2 (08:20)
[2021-05-18] MEDS ORDERED: diphenhydrAMINE 25mg capsule PO PRN (08:20)
[2021-05-18] MEDS ORDERED: acetaminophen 325mg tablet PO PRN ×2 (08:20)
[2021-05-18] MEDS ORDERED: magnesium 4gm in 100ml NS 100 ML IV PRN (08:20)
[2021-05-18] MEDS ORDERED: mag hydrox/Alum hydrox/simeth 30ml oral suspension PO PRN (08:20)
[2021-05-18] MEDS ORDERED: ondansetron/PF 4mg/2ml inj IV PRN (08:20)
[2021-05-18] MEDS: CefTRIAXone/D5W-Rocephin 1gm 50 ML IV SCH (08:46)
[2021-05-18] MEDS: normal saline 1000ml 1,000 ML IV SCH ×2 (08:47→21:40)
[2021-05-18] MEDS: azithromycin 250mg tablet PO SCH (08:47)
[2021-05-18 08:58] LABS: HEMOGLOBIN A1C 5.3 % (4.5-6.2)
--- NOTE | 2021-05-18 10:30 | NUR ---
Received report from Kary FONTANEZ ED. Had opportunity to ask questions concerning plan of care. Awaiting arrival of Pt to room 5800P.
[2021-05-18] MEDS ORDERED: FLO110IN PO (10:45)
--- NOTE | 2021-05-18 10:45 | NUR ---
Pt arrived to room 3023b. Pt alert and oriented and vitals WNL. Will continue to monitor Pt as needed
[2021-05-18 11:00] VITALS: BP 212/115
[2021-05-18] MEDS: ipratropium/albuterol 3ml nebule NEB SCH ×4 (12:11→23:57)
--- NOTE | 2021-05-18 12:40 | NUR ---
PAGER ID: [phone] MESSAGE: Re: Katie Britton. Room: 3023B. Pt's BP is 202/99. Home med rec complete and ready for you too review. -Javan [facility] [id number] -Dr. Barraza paged concerning Pt's BP
[2021-05-18] MEDS ORDERED: hydrALAZINE 20mg/ml inj. IV ONE (12:55)
[2021-05-18] MEDS: methylPREDNISolone sod succ 125mg/2ml vial IV SCH ×2 (14:41→20:39)
[2021-05-18 15:00] VITALS: BP 159/89
--- NOTE | 2021-05-18 16:44 | NUR ---
PAGER ID: [phone] MESSAGE: Re: Katie Britton. Room: 3023B. Pt's home med rec complete and ready to for you to review. -Javan [facility] #[id number] -Dr. Barraza paged concerning Pt's home med rec.
[2021-05-18 18:00] VITALS: BP 165/94
--- NOTE | 2021-05-18 18:00 | NUR ---
Patient in room PCU 3023. I have received report from Sybil and had the opportunity to ask questions and assume patient care.
--- NOTE | 2021-05-18 18:20 | NUR ---
Problems reprioritized. Patient report given, questions answered & plan of care reviewed with Tanya FONTANEZ.
[2021-05-18] MEDS: K and/or MAG REPLACEMENT MC SCH (20:00)
[2021-05-18] MEDS: budesonide 0.5mg/2ml UD nebule IH SCH (20:11)
[2021-05-18] MEDS: heparin, porcine 5000 units/ml vial SQ SCH (20:39)
[2021-05-18] MEDS: carVEDilol 12.5mg tablet PO SCH (20:40)
[2021-05-18] MEDS: lactobacillus rhamnosus 10,000 MMU CELLS/CAPSULE PO SCH (20:40)
[2021-05-18 22:00] VITALS: BP 154/88
[2021-05-19] VITALS (8 sets, daily range): BP systolic 150–187; BP diastolic 71–109
[2021-05-19] MEDS: methylPREDNISolone sod succ 125mg/2ml vial IV SCH ×4 (02:30→19:15)
--- NOTE | 2021-05-19 06:02 | NUR ---
Problems reprioritized. Patient report given, questions answered & plan of care reviewed with Lorena-RN.
[2021-05-19 06:13] LABS: BASOPHILS % (AUTO) 0.1 % (0-1); EOSINOPHILS % (AUTO) 0 % (0-6); HEMATOCRIT 38.7 % (35.0-45.0); LYMPHOCYTES # (AUTO) 0.6 X10'3 (1.1-4.8); LYMPHOCYTES % (AUTO) 5.6 % (21-51); MEAN CORPUSCULAR HEMOGLOBIN 34.5 PG (27.0-31.0); MEAN CORPUSCULAR HGB CONC 33.6 g/dL (33.0-36.5); MEAN CORPUSCULAR VOLUME 102.7 FL (78-98); MEAN PLATELET VOLUME 8.8 FL (7.4-10.4); MONOCYTES # (AUTO) 0.2 X10'3 (0-0.9); MONOCYTES % (AUTO) 1.5 % (2-12); NEUTROPHILS # (AUTO) 10.5 X10'3 (1.8-7.7); NEUTROPHILS % (AUTO) 92.8 % (42-75); PLATELET COUNT 297 X10'3 (140-440); RED BLOOD COUNT 3.76 X10'6 (4.20-5.60); RED CELL DISTRIBUTION WIDTH 13.5 % (11.5-14.5); WHITE BLOOD COUNT 11.3 X10'3 (4.5-11.0)
[2021-05-19 06:26] LABS: ALANINE AMINOTRANSFERASE 21 U/L (12-78); ALBUMIN 3.1 G/DL (3.4-5.0); ALBUMIN/GLOBULIN RATIO 0.9 (1.1-1.5); ALKALINE PHOSPHATASE 83 IU/L (46-116); ANION GAP 10 (8-16); ASPARTATE AMINO TRANSFERASE 14 U/L (10-37); BILIRUBIN,TOTAL 0.2 MG/DL (0.1-1.0); BLOOD UREA NITROGEN 19 MG/DL (7-18); BUN/CREATININE RATIO 23.2 (6.6-38.0); CALCIUM 8.4 MG/DL (8.5-10.1); CHLORIDE 108 MMOL/L (99-107); CHOL/HDL RATIO 2.1 (0.00-4.99); CHOLESTEROL 150 MG/DL (0-200); CREATININE 0.82 MG/DL (0.40-0.90); GLUCOSE 135 MG/DL (70-104); HDL CHOLESTEROL 70 MG/DL (35-60); LDL CHOLESTEROL 63 MG/DL (50-100); MAGNESIUM 1.9 MG/DL (1.5-2.4); SODIUM 142 MMOL/L (135-145); TOTAL CARBON DIOXIDE 24.4 MMOL/L (24-32); TOTAL PROTEIN 6.6 G/DL (6.4-8.2); TRIGLYCERIDES 36 MG/DL (20-135); eGFR 71 ML/MIN
[2021-05-19] MEDS: ipratropium/albuterol 3ml nebule NEB SCH ×5 (07:40→23:19)
[2021-05-19] MEDS: budesonide 0.5mg/2ml UD nebule IH SCH ×2 (07:44→19:31)
[2021-05-19] MEDS: CefTRIAXone/D5W-Rocephin 1gm 50 ML IV SCH (07:53)
[2021-05-19] MEDS: lisinopril 20mg tablet PO SCH (07:54)
[2021-05-19] MEDS: atorvastatin 20mg tablet PO SCH (07:56)
[2021-05-19] MEDS: carVEDilol 12.5mg tablet PO SCH ×2 (07:56→19:15)
[2021-05-19] MEDS: azithromycin 250mg tablet PO SCH (07:56)
[2021-05-19] MEDS: lactobacillus rhamnosus 10,000 MMU CELLS/CAPSULE PO SCH ×2 (07:56→19:15)
[2021-05-19] MEDS: heparin, porcine 5000 units/ml vial SQ SCH ×2 (07:57→19:16)
[2021-05-19] MEDS: K and/or MAG REPLACEMENT MC SCH ×2 (07:59→19:25)
[2021-05-19] MEDS ORDERED: Stiolto Respimat Inhal Spray IH SCH (08:00)
[2021-05-19] MEDS: morphine 2 MG/ML inj. syringe IV PRN ×3 (08:09→17:56)
--- NOTE | 2021-05-19 11:56 | NUR ---
c/o PERAZA , admin morphine first. will re-eval and see if BP needs adressing next.
[2021-05-19] MEDS: hydrALAZINE 20mg/ml inj. IV PRN (12:34)
--- NOTE | 2021-05-19 18:16 | NUR ---
Problems reprioritized. Patient report given, questions answered & plan of care reviewed with ramila.
[2021-05-19] MEDS: amLODIPine 5mg tablet PO SCH (21:18)
[2021-05-19] MEDS: pantoprazole 40mg Tablet.DR PO SCH (21:18)
[2021-05-20] MEDS: methylPREDNISolone sod succ 125mg/2ml vial IV SCH ×4 (01:57→19:54)
[2021-05-20 02:00] VITALS: BP 144/72
[2021-05-20] MEDS: ipratropium/albuterol 3ml nebule NEB SCH ×6 (04:25→22:37)
[2021-05-20 06:00] VITALS: BP 165/91
[2021-05-20 07:10] LABS: EOSINOPHILS % (AUTO) 0 % (0-6); HEMOGLOBIN 12.8 g/dl (12.0-16.0); MONOCYTES # (AUTO) 0.3 X10'3 (0-0.9); WHITE BLOOD COUNT 13.6 X10'3 (4.5-11.0)
[2021-05-20 07:13] LABS: BASOPHILS % (AUTO) 0.3 % (0-1); HEMATOCRIT 38.3 % (35.0-45.0); LYMPHOCYTES # (AUTO) 0.6 X10'3 (1.1-4.8); LYMPHOCYTES % (AUTO) 4.7 % (21-51); MEAN CORPUSCULAR HEMOGLOBIN 33.8 PG (27.0-31.0); MEAN CORPUSCULAR HGB CONC 33.5 g/dL (33.0-36.5); MEAN CORPUSCULAR VOLUME 100.9 FL (78-98); MEAN PLATELET VOLUME 8.8 FL (7.4-10.4); MONOCYTES % (AUTO) 1.9 % (2-12); NEUTROPHILS # (AUTO) 12.6 X10'3 (1.8-7.7); NEUTROPHILS % (AUTO) 93.1 % (42-75); PLATELET COUNT 297 X10'3 (140-440); RED CELL DISTRIBUTION WIDTH 13.8 % (11.5-14.5)
[2021-05-20 07:37] LABS: ALANINE AMINOTRANSFERASE 20 U/L (12-78); ALBUMIN 3.2 G/DL (3.4-5.0); ALKALINE PHOSPHATASE 76 IU/L (46-116); ANION GAP 11 (8-16); ASPARTATE AMINO TRANSFERASE 11 U/L (10-37); BILIRUBIN,TOTAL 0.2 MG/DL (0.1-1.0); BLOOD UREA NITROGEN 25 MG/DL (7-18); BUN/CREATININE RATIO 25.5 (6.6-38.0); CALCIUM 8.6 MG/DL (8.5-10.1); CHLORIDE 107 MMOL/L (99-107); CREATININE 0.98 MG/DL (0.40-0.90); GLUCOSE 137 MG/DL (70-104); MAGNESIUM 2.2 MG/DL (1.5-2.4); POTASSIUM 3.7 MMOL/L (3.5-5.1); SODIUM 144 MMOL/L (135-145); TOTAL CARBON DIOXIDE 25.6 MMOL/L (24-32); TOTAL PROTEIN 6.5 G/DL (6.4-8.2); eGFR 58 ML/MIN
[2021-05-20] MEDS: budesonide 0.5mg/2ml UD nebule IH SCH ×2 (07:39→19:32)
[2021-05-20] MEDS: K and/or MAG REPLACEMENT MC SCH ×2 (08:00→20:00)
[2021-05-20] MEDS: CefTRIAXone/D5W-Rocephin 1gm 50 ML IV SCH (08:49)
[2021-05-20] MEDS: lactobacillus rhamnosus 10,000 MMU CELLS/CAPSULE PO SCH ×2 (08:50→19:54)
[2021-05-20] MEDS: atorvastatin 20mg tablet PO SCH (08:50)
[2021-05-20] MEDS: carVEDilol 12.5mg tablet PO SCH ×2 (08:54→19:54)
[2021-05-20] MEDS: azithromycin 250mg tablet PO SCH (08:54)
[2021-05-20] MEDS: amLODIPine 5mg tablet PO SCH (08:54)
[2021-05-20] MEDS: lisinopril 20mg tablet PO SCH (08:55)
[2021-05-20] MEDS: heparin, porcine 5000 units/ml vial SQ SCH ×2 (08:55→19:54)
[2021-05-20] MEDS: pantoprazole 40mg Tablet.DR PO SCH (08:59)
[2021-05-20] MEDS: morphine 2 MG/ML inj. syringe IV PRN (09:12)
[2021-05-20 11:00] VITALS: BP 149/78
[2021-05-20] MEDS ORDERED: butalbital/acetaminophen/caffeine (Fioricet) tablet PO PRN (12:50)
[2021-05-20 15:00] VITALS: BP 165/87
--- NOTE | 2021-05-20 17:56 | NUR ---
Pt states mild dizzyness after taking fioricet
[2021-05-20 18:00] VITALS: BP 150/69
--- NOTE | 2021-05-20 18:30 | NUR ---
Problems reprioritized. Patient report given, questions answered & plan of care reviewed with austen peñaloza.
--- NOTE | 2021-05-20 18:51 | NUR ---
Patient in room PCU 3023. I have received report from PHIL FONTANEZ and had the opportunity to ask questions and assume patient care.
[2021-05-20 22:00] VITALS: BP 148/66
[2021-05-21] VITALS (9 sets, daily range): BP systolic 124–209; BP diastolic 64–101
[2021-05-21] MEDS: methylPREDNISolone sod succ 125mg/2ml vial IV SCH ×4 (01:32→20:19)
[2021-05-21] MEDS: ipratropium/albuterol 3ml nebule NEB SCH ×6 (02:39→23:00)
[2021-05-21] MEDS: budesonide 0.5mg/2ml UD nebule IH SCH ×2 (07:11→19:13)
[2021-05-21 07:32] LABS: BASOPHILS % (AUTO) 0 % (0-1); EOSINOPHILS % (AUTO) 0 % (0-6); HEMATOCRIT 39.7 % (35.0-45.0); HEMOGLOBIN 13.2 g/dl (12.0-16.0); LYMPHOCYTES # (AUTO) 0.6 X10'3 (1.1-4.8); LYMPHOCYTES % (AUTO) 4.5 % (21-51); MEAN CORPUSCULAR HEMOGLOBIN 34.2 PG (27.0-31.0); MEAN CORPUSCULAR HGB CONC 33.3 g/dL (33.0-36.5); MEAN CORPUSCULAR VOLUME 102.6 FL (78-98); MEAN PLATELET VOLUME 9.3 FL (7.4-10.4); MONOCYTES # (AUTO) 0.3 X10'3 (0-0.9); MONOCYTES % (AUTO) 2.5 % (2-12); NEUTROPHILS # (AUTO) 11.8 X10'3 (1.8-7.7); PLATELET COUNT 304 X10'3 (140-440); RED BLOOD COUNT 3.86 X10'6 (4.20-5.60); RED CELL DISTRIBUTION WIDTH 13.8 % (11.5-14.5); WHITE BLOOD COUNT 12.7 X10'3 (4.5-11.0)
[2021-05-21] MEDS: hydrALAZINE 20mg/ml inj. IV PRN ×2 (07:39→20:20)
[2021-05-21] MEDS: amLODIPine 5mg tablet PO SCH (07:41)
[2021-05-21] MEDS: pantoprazole 40mg Tablet.DR PO SCH (07:41)
[2021-05-21 07:42] LABS: ALANINE AMINOTRANSFERASE 22 U/L (12-78); ALBUMIN 2.9 G/DL (3.4-5.0); ALBUMIN/GLOBULIN RATIO 0.8 (1.1-1.5); ALKALINE PHOSPHATASE 70 IU/L (46-116); ANION GAP 12 (8-16); ASPARTATE AMINO TRANSFERASE 8 U/L (10-37); BILIRUBIN,TOTAL 0.2 MG/DL (0.1-1.0); BLOOD UREA NITROGEN 28 MG/DL (7-18); BUN/CREATININE RATIO 29.2 (6.6-38.0); CALCIUM 8.7 MG/DL (8.5-10.1); CHLORIDE 107 MMOL/L (99-107); CREATININE 0.96 MG/DL (0.40-0.90); GLUCOSE 127 MG/DL (70-104); MAGNESIUM 2.3 MG/DL (1.5-2.4); POTASSIUM 3.6 MMOL/L (3.5-5.1); SODIUM 145 MMOL/L (135-145); TOTAL CARBON DIOXIDE 26.4 MMOL/L (24-32); TOTAL PROTEIN 6.4 G/DL (6.4-8.2); eGFR 59 ML/MIN
[2021-05-21] MEDS: atorvastatin 20mg tablet PO SCH (07:42)
[2021-05-21] MEDS: lisinopril 20mg tablet PO SCH (07:42)
[2021-05-21] MEDS: carVEDilol 12.5mg tablet PO SCH ×2 (07:42→20:20)
[2021-05-21] MEDS: lactobacillus rhamnosus 10,000 MMU CELLS/CAPSULE PO SCH ×2 (07:42→20:20)
[2021-05-21] MEDS: azithromycin 250mg tablet PO SCH (07:42)
[2021-05-21] MEDS: heparin, porcine 5000 units/ml vial SQ SCH ×2 (07:43→20:19)
[2021-05-21] MEDS: CefTRIAXone/D5W-Rocephin 1gm 50 ML IV SCH (07:48)
[2021-05-21] MEDS: K and/or MAG REPLACEMENT MC SCH ×2 (08:00→20:00)
--- NOTE | 2021-05-21 12:21 | NUR ---
RA 88 %. Amb 600 feet , steady gait. SPO2 checks of 90% on 2L. no c/o SOB. she did say she started feeling lightheaded after standing to await SPO2 result after 2nd lap she came up to 92% standing.
[2021-05-21] MEDS ORDERED: cloNIDine 0.2 MG/24 HR patch (7 day patch) TD SCH (13:50)
--- NOTE | 2021-05-21 18:00 | NUR ---
placed new PIV 20g, pt andrew well , LFA. removed old 20g in L ac - site was pink. canula intact
--- NOTE | 2021-05-21 18:15 | NUR ---
Patient in room PCU 3023. I have received report from Awais FONTANEZ and had the opportunity to ask questions and assume patient care.
--- NOTE | 2021-05-21 18:20 | NUR ---
Patient in room PCU 3023. I have received report from Awais FONTANEZ and had the opportunity to ask questions and assume patient care.
--- NOTE | 2021-05-21 18:31 | NUR ---
Problems reprioritized. Patient report given, questions answered & plan of care reviewed with Candi FONTANEZ.
[2021-05-21] MEDS: morphine 2 MG/ML inj. syringe IV PRN (20:21)
[2021-05-22 02:00] VITALS: BP 139/82
[2021-05-22] MEDS: methylPREDNISolone sod succ 125mg/2ml vial IV SCH ×2 (02:45→09:25)
[2021-05-22] MEDS: ipratropium/albuterol 3ml nebule NEB SCH ×3 (02:48→11:35)
--- NOTE | 2021-05-22 06:36 | NUR ---
Problems reprioritized. Patient report given, questions answered & plan of care reviewed with Donna FONTANEZ.
--- NOTE | 2021-05-22 06:48 | NUR ---
Patient in room PCU 3023. I have received report from Candi FONTANEZ and had the opportunity to ask questions and assume patient care.
[2021-05-22 06:54] LABS: BASOPHILS % (AUTO) 0.1 % (0-1); EOSINOPHILS % (AUTO) 0 % (0-6); HEMOGLOBIN 13.7 g/dl (12.0-16.0); LYMPHOCYTES # (AUTO) 0.4 X10'3 (1.1-4.8)
[2021-05-22 06:56] LABS: HEMATOCRIT 41.3 % (35.0-45.0); LYMPHOCYTES % (AUTO) 3.7 % (21-51); MEAN CORPUSCULAR HEMOGLOBIN 33.5 PG (27.0-31.0); MEAN CORPUSCULAR VOLUME 101.6 FL (78-98); MEAN PLATELET VOLUME 8.9 FL (7.4-10.4); MONOCYTES # (AUTO) 0.4 X10'3 (0-0.9); MONOCYTES % (AUTO) 3.1 % (2-12); NEUTROPHILS % (AUTO) 93.1 % (42-75); PLATELET COUNT 309 X10'3 (140-440); RED BLOOD COUNT 4.07 X10'6 (4.20-5.60); RED CELL DISTRIBUTION WIDTH 13.8 % (11.5-14.5); WHITE BLOOD COUNT 11.8 X10'3 (4.5-11.0)
[2021-05-22 07:00] VITALS: BP 172/81
[2021-05-22 07:17] LABS: ALANINE AMINOTRANSFERASE 21 U/L (12-78); ALBUMIN 2.8 G/DL (3.4-5.0); ALBUMIN/GLOBULIN RATIO 0.8 (1.1-1.5); ALKALINE PHOSPHATASE 72 IU/L (46-116); ANION GAP 7 (8-16); ASPARTATE AMINO TRANSFERASE 9 U/L (10-37); BILIRUBIN,TOTAL 0.2 MG/DL (0.1-1.0); BLOOD UREA NITROGEN 29 MG/DL (7-18); CALCIUM 8.5 MG/DL (8.5-10.1); CHLORIDE 106 MMOL/L (99-107); CREATININE 0.88 MG/DL (0.40-0.90); GLUCOSE 133 MG/DL (70-104); MAGNESIUM 2.3 MG/DL (1.5-2.4); POTASSIUM 3.4 MMOL/L (3.5-5.1); SODIUM 142 MMOL/L (135-145); TOTAL CARBON DIOXIDE 28.7 MMOL/L (24-32); TOTAL PROTEIN 6.2 G/DL (6.4-8.2); eGFR 66 ML/MIN
[2021-05-22] MEDS: K and/or MAG REPLACEMENT MC SCH (08:00)
[2021-05-22] MEDS: budesonide 0.5mg/2ml UD nebule IH SCH (08:19)
[2021-05-22] MEDS: lisinopril 20mg tablet PO SCH (09:23)
[2021-05-22] MEDS: carVEDilol 12.5mg tablet PO SCH (09:24)
[2021-05-22] MEDS: pantoprazole 40mg Tablet.DR PO SCH (09:24)
[2021-05-22] MEDS: amLODIPine 5mg tablet PO SCH (09:24)
[2021-05-22] MEDS: lactobacillus rhamnosus 10,000 MMU CELLS/CAPSULE PO SCH (09:24)
[2021-05-22] MEDS: azithromycin 250mg tablet PO SCH (09:24)
[2021-05-22] MEDS: atorvastatin 20mg tablet PO SCH (09:25)
[2021-05-22] MEDS: heparin, porcine 5000 units/ml vial SQ SCH (09:26)
[2021-05-22] MEDS: CefTRIAXone/D5W-Rocephin 1gm 50 ML IV SCH (09:26)
[2021-05-22] MEDS: morphine 2 MG/ML inj. syringe IV PRN (09:40)
[2021-05-22] MEDS ORDERED: AZI25OT PO (10:50)
[2021-05-22] MEDS ORDERED: METH4TAB81 PO (10:50)
[2021-05-22] MEDS ORDERED: BUTA1TAB54 PO (10:50)
[2021-05-22] MEDS ORDERED: NOR5T PO (10:50)
[2021-05-22] MEDS ORDERED: LACT1CAP26 PO (10:50)
[2021-05-22 11:00] VITALS: BP 155/90
--- NOTE | 2021-05-22 13:31 | NUR ---
problem with finalizing discharge medication. Dr. Briggs paged. PAGER ID: [phone] MESSAGE: RE: Katie han: [id number]: there is a problem with the discharge med: fioricet. do you want the pt send home with a new RX for this? [facility] will not let me finalize this order. -Donna #[phone]
--- NOTE | 2021-05-22 15:06 | NUR ---
Pt stable for discharge per MD order. All discharge instrustions reviewed with patient and all questions answered. follow up appointment on 05/27/[address] Tobin at "[facility]" per pt. New meds escripted to [facility] in [place]. PIV discontinued. Cannula intact. equipment monitor phototypesetting discontinued. Belongings collected and sent with pt. Pt ambulated to the [facility] where she left in a private vehicle driven by her friend. pt without SOB or s/sx acute distress.
== END 2021-05-22 14:00 | disposition home or self-care (01) | DRG 139 ==
LOC: ER 06:29 → ED HOLD 08:20 → EDBEDREQTM 09:19 → PCU 3S 10:56
PROVIDERS: ADMIT Family Medicine; ATTEND Family Medicine
DX: J18.9 Pneumonia, unspecified organism (principal); J96.20 Acute and chronic respiratory failure, unspecified whether with hypoxia or hypercapnia; Z99.81 Dependence on supplemental oxygen; J44.0 Chronic obstructive pulmonary disease with (acute) lower respiratory infection; J44.1 Chronic obstructive pulmonary disease with (acute) exacerbation; J20.9 Acute bronchitis, unspecified; E78.5 Hyperlipidemia, unspecified; G43.909 Migraine, unspecified, not intractable, without status migrainosus; I10 Essential (primary) hypertension; I16.0 Hypertensive urgency; Z20.822 Contact with and (suspected) exposure to COVID-19; Z79.899 Other long term (current) drug therapy; Z82.3 Family history of stroke; Z82.49 Family history of ischemic heart disease and other diseases of the circulatory system; Z87.891 Personal history of nicotine dependence; Z90.710 Acquired absence of both cervix and uterus; Z91.041 Radiographic dye allergy status; Z91.013 Allergy to seafood; Z91.018 Allergy to other foods; Z83.3 Family history of diabetes mellitus
CPT/HCPCS: 36415; 71045; 80053; 80061; 83036; 83735; 83880; 84484; 85025; 87070; 87081; 87635; 93005; 93306; 94640; 94760; 96374; 96375; 97161; 97530; 99285; C9803; G0378; J0360; J0696; J1644; J1885; J2270; J2930; J3490; J7030; J7626; Q0163

== ENCOUNTER 2022-10-25 02:52 | Emergency (ER) | payer MEDICAID ==
[~2022-10-25] VITALS: Ht 160 cm; Wt 59.1 kg
[~2022-10-25 02:52] MED LIST changes: -AMLO5TAB16 PO; +AZI25OT PO; +FLO110IN PO; -FURO20TA4 PO; +LACT1CAP26 PO; -MECL-226 PO; +METH4TAB81 PO; +NOR5T PO; +POTA-192 PO; -POTA10TA19 PO
[2022-10-25] MEDS ORDERED: methylPREDNISolone sod succ 125mg/2ml vial IV ONE (03:05)
[2022-10-25] MEDS ORDERED: albuterol 2.5 MG/3 ML nebule CONTNEB PRN (03:05)
[2022-10-25] MEDS ORDERED: ipratropium/albuterol 3ml nebule NEB ONE (03:05)
[2022-10-25] MEDS ORDERED: normal saline 1000ML IV soln IVB ONE (03:05)
[2022-10-25] MEDS ORDERED: magnesium 2GM in 50ml NS 50 ML IV ONE (03:05)
[2022-10-25] MEDS ORDERED: PRED20TA PO (04:31)
[2022-10-25 04:35] LABS: BASOPHILS % (AUTO) 0.3 % (0-1); EOSINOPHILS % (AUTO) 0.4 % (0-6); HEMATOCRIT 40.2 % (35.0-45.0); HEMOGLOBIN 13.5 g/dl (12.0-16.0); LYMPHOCYTES # (AUTO) 1.6 X10'3 (1.1-4.8); LYMPHOCYTES % (AUTO) 16.3 % (21-51); MEAN CORPUSCULAR HEMOGLOBIN 33.2 PG (27.0-31.0); MEAN CORPUSCULAR HGB CONC 33.6 g/dL (33.0-36.5); MEAN CORPUSCULAR VOLUME 98.9 FL (78-98); MEAN PLATELET VOLUME 8.6 FL (7.4-10.4); MONOCYTES # (AUTO) 0.6 X10'3 (0-0.9); NEUTROPHILS # (AUTO) 7.4 X10'3 (1.8-7.7); PLATELET COUNT 285 X10'3 (140-440); RED BLOOD COUNT 4.06 X10'6 (4.20-5.60); RED CELL DISTRIBUTION WIDTH 13.2 % (11.5-14.5); WHITE BLOOD COUNT 9.6 X10'3 (4.5-11.0)
[2022-10-25 04:57] LABS: ALANINE AMINOTRANSFERASE 23 U/L (12-78); ALBUMIN 2.9 G/DL (3.4-5.0); ALBUMIN/GLOBULIN RATIO 0.9 (1.1-1.5); ALKALINE PHOSPHATASE 104 IU/L (46-116); ANION GAP 11 (8-16); ASPARTATE AMINO TRANSFERASE 22 U/L (10-37); BILIRUBIN,TOTAL 0.2 MG/DL (0.1-1.0); BLOOD UREA NITROGEN 20 MG/DL (7-18); BUN/CREATININE RATIO 21.7 (6.6-38.0); CALCIUM 7.9 MG/DL (8.5-10.1); CHLORIDE 107 MMOL/L (99-107); CREATININE 0.92 MG/DL (0.40-0.90); GLUCOSE 107 MG/DL (70-104); SODIUM 143 MMOL/L (135-145); TOTAL CARBON DIOXIDE 25.4 MMOL/L (24-32); eGFR 62 ML/MIN
[2022-10-25] MEDS ORDERED: POTASSIUM BICARB 20meq eff tab 20 MEQ TABLET.EFF PO ONE (05:25)
[2022-10-25 05:52] VITALS: BP 150/64
== END 2022-10-25 05:54 | disposition home or self-care (01) ==
LOC: ER 02:52
DX: J96.00 Acute respiratory failure, unspecified whether with hypoxia or hypercapnia (principal); J44.1 Chronic obstructive pulmonary disease with (acute) exacerbation; F17.200 Nicotine dependence, unspecified, uncomplicated; Z56.0 Unemployment, unspecified; Z88.8 Allergy status to other drugs, medicaments and biological substances; Z91.013 Allergy to seafood; Z79.2 Long term (current) use of antibiotics; Z79.899 Other long term (current) drug therapy
CPT/HCPCS: 36415; 71045; 80053; 83880; 85025; 93005; 94640; 94644; 96365; 96375; 99291; J2930; J3475; J7030; 94760; A7015

== ENCOUNTER 2024-02-25 10:54 | Outpatient (CLI) | payer MEDICAID | END 2024-02-25 23:59 | disposition home or self-care (01) | LOC: CARD DIAG 10:54 | PROVIDERS: ATTEND Internal Medicine Interventional Cardiology | DX: I08.8 Other rheumatic multiple valve diseases (principal); R94.31 Abnormal electrocardiogram [ECG] [EKG] | CPT/HCPCS: 93306 ==